=== PATIENT | female | born 1965 | race Caucasian/White ===

== ENCOUNTER 2020-07-03 07:59 | Outpatient (REF) | payer OTHER, SELFPAY ==
[2020-07-03 09:09] LABS: MANUAL DIFF FLAG NO
[2020-07-03 09:20] LABS: Basophils Percent Auto 0.3 % (0-2); Eosinophils Absolute Auto 0.2 X10*3/uL (0.0-0.4); Eosinophils Percent Auto 3.5 % (0-4); Hematocrit 40.3 % (37-47); Hemoglobin 12.9 g/dl (12.0-16.0); Imm Gran Abs Auto 0.03 X10*3/uL (0.00-0.03); Imm Gran Pct Auto 0.5 % (0.0-0.4); Lymphocytes Absolute Auto 2.4 X10*3/uL (1.2-4.9); Lymphocytes Percent Auto 39.7 % (20-40); Mean Corpuscular Hemoglobin 28.5 pg (27.0-33.0); Mean Corpuscular Volume 89.2 fL (80-98); Monocytes Absolute Auto 0.4 X10*3/uL (0.1-1.2); Monocytes Percent Auto 6.7 % (2-11); Neutrophils Absolute Auto 2.9 X10*3/uL (2.0-8.3); Neutrophils Percent Auto 49.3 % (45-73); Platelet Count 334 X10*3/uL (160-400); Red Blood Count 4.52 X10*6/uL (4.20-5.50); Red Cell Distribution Width 12.9 % (11.0-16.0)
[2020-07-03 10:05] LABS: Alanine Aminotransferase 47 U/L (0-31); Albumin Level 4.3 g/dL (3.5-5.0); Alkaline Phosphatase 59 U/L (39-117); Anion Gap 12 (12-20); Aspartate Amino Transferase 30 U/L (5-31); Bilirubin Total 0.5 mg/dL (0.0-1.0); Blood Urea Nitrogen 13 mg/dL (9-16); Calcium 9.1 mg/dL (8.4-10.2); Carbon Dioxide 30 mmol/L (22-29); Chloride 104 mmol/L (96-108); Cholesterol 230 mg/dL; Estimated Glomerular Filt Rate > 60; Glucose Fasting 96 mg/dL (60-99); HDL Cholesterol 54 mg/dL; LDL Cholesterol Calculated 127 mg/dl; Potassium 4.7 mmol/l (3.3-5.1); Sodium 141 mmol/L (135-145); Total Protein 6.8 g/dL (6.5-8.0); Triglycerides 249 mg/dL
== END 2020-07-03 08:00 | disposition home or self-care (01) ==
LOC: HO.10HDL 07:59
PROVIDERS: PCP Internal Medicine; Visit Provider Internal Medicine
DX: Z00.00 Encounter for general adult medical examination without abnormal findings (principal)
CPT/HCPCS: 36415; 80053; 80061; 85025

== ENCOUNTER → 2020-09-25 14:22 | Outpatient (BNVA) | payer OTHER, SELFPAY | PROVIDERS: PCP Internal Medicine; Visit Provider Surgery ==

== ENCOUNTER 2020-10-12 12:03 | Outpatient (REF) | payer OTHER, SELFPAY ==
[2020-10-12 13:08] LABS: Influenza A PCR NEGATIVE (Negative); Influenza B PCR NEGATIVE (Negative); Resp Syncy Virus RNA Qual PCR NEGATIVE (Negative); SARS COV2 PCR INHOUSE NEGATIVE (Negative)
== END 2020-10-12 12:04 | disposition home or self-care (01) ==
LOC: HO.LNP 12:03
PROVIDERS: Visit Provider Internal Medicine
DX: Z20.822 Contact with and (suspected) exposure to COVID-19 (principal)
CPT/HCPCS: 0241U

== ENCOUNTER 2021-01-11 13:13 | Outpatient (REF) | payer OTHER, SELFPAY ==
--- NOTE | ~2021-01-11 | MM_ITS ---
EXAMINATION: MM DIAGNOSTIC DIGITAL BREAST TOMOSYNTHESIS, BILATERAL US TARGETED BREAST, LEFT CLINICAL INFORMATION: History of breast cancer with 2 aunts with breast cancer. COMPARISON: Mammography: 01/10/2020 and studies dating back to 12/31/2010 Ultrasound: 02/27/2020 TECHNIQUE: Digital breast tomosynthesis is performed in both the craniocaudal and mediolateral oblique views along with computer-aided detection (CAD). Synthesized 2-D images are generated from the tomosynthesis. Spot magnification views in craniocaudal and 90 degree mediolateral views performed of the left breast. Left breast exaggerated craniocaudal view performed. Targeted left breast ultrasound FINDINGS: There are scattered areas of fibroglandular density (ACR BI-RADS breast composition Category b). There is stable appearance of the right breast with no new abnormal dominant mass or suspicious grouping of microcalcifications identified. There is noted to be architectural distortion related to previous lumpectomy about the upper outer aspect of the left breast. There are a few stable associated calcifications. No new abnormal dominant mass or suspicious grouping of microcalcifications identified. Targeted ultrasound evaluation did not demonstrate any abnormal cystic or solid mass. There is a region of irregular hypoechoic tissue with distal sound shadowing but which is related to the linear scar from previous surgery at the 4 o'clock position approximately 15 cm from the nipple. Results are discussed with the patient at time of visit. MM/MM tomosynthesis diagnostic BI IMPRESSION: There are no significant changes from prior study. ASSESSMENT: BI-RADS 2: Benign. RECOMMENDATION: Routine annual mammography screening due in 12 months. This patient's information was entered into a reminder system with a target due date for their next mammogram.
--- NOTE | ~2021-01-11 | US_ITS ---
EXAMINATION: US DIAGNOSTIC ULTRASOUND BREAST, LEFT CLINICAL INFORMATION: Left breast tenderness at lumpectomy site. COMPARISON: Ultrasound of February 27, 2020.. TECHNIQUE: Ultrasound of the breast is performed with real-time mclean scale imaging and color Doppler. FINDINGS: Targeted ultrasound evaluation did not demonstrate any abnormal cystic or solid mass. There is a region of irregular hypoechoic tissue with distal sound shadowing but which is related to the linear scar from previous surgery at the 4:00 position approximately 15 cm from the nipple. Results are discussed with the patient at time of visit. US/US breast LT limited IMPRESSION: There are no significant changes from prior study. ASSESSMENT: BI-RADS 2: Benign RECOMMENDATION: Routine annual mammography screening due in 12 months.
== END 2021-01-11 13:14 | disposition home or self-care (01) ==
LOC: HO.MAMMO 13:13
PROVIDERS: PCP Internal Medicine; Visit Provider Surgery
DX: D05.12 Intraductal carcinoma in situ of left breast (principal)
CPT/HCPCS: 76642; 77062; 77066

== ENCOUNTER → 2021-03-19 12:56 | Outpatient (BNVA) | payer OTHER, SELFPAY | PROVIDERS: PCP Internal Medicine; Referring Provider Internal Medicine; Visit Provider Surgery ==

== ENCOUNTER → 2021-09-19 14:33 | Outpatient (BNVA) | payer OTHER, SELFPAY | PROVIDERS: PCP Internal Medicine; Referring Provider Internal Medicine; Visit Provider Surgery | DX: D05.12 Intraductal carcinoma in situ of left breast (principal); Z79.899 Other long term (current) drug therapy | CPT/HCPCS: 99212 ==

== ENCOUNTER 2021-11-04 07:42 | Outpatient (REF) | payer OTHER, SELFPAY ==
[2021-11-04 08:06] LABS: MANUAL DIFF FLAG NO
[2021-11-04 08:40] LABS: Basophils Percent Auto 0.3 % (0-2); Eosinophils Absolute Auto 0.3 X10*3/uL (0.0-0.4); Eosinophils Percent Auto 5.1 % (0-4); Hematocrit 36.9 % (37.0-47.0); Hemoglobin 11.8 g/dl (12.0-16.0); Imm Gran Abs Auto 0.02 X10*3/uL (0.00-0.03); Imm Gran Pct Auto 0.3 % (0.0-0.4); Lymphocytes Absolute Auto 2.5 X10*3/uL (1.2-4.9); Lymphocytes Percent Auto 40.3 % (20-40); Mean Corpuscular Hemoglobin 28.4 pg (27.0-33.0); Mean Corpuscular Volume 88.7 fL (80.0-98.0); Monocytes Absolute Auto 0.5 X10*3/uL (0.1-1.2); Monocytes Percent Auto 8.6 % (2-11); Neutrophils Absolute Auto 2.8 x10*3/uL (2.0-8.3); Neutrophils Percent Auto 45.4 % (45-73); Platelet Count 313 X10*3/uL (160-400); Red Blood Count 4.16 X10*6/uL (4.20-5.50); Red Cell Distribution Width 13.1 % (11.0-16.0); White Blood Count 6.1 X10*3/uL (4.8-10.8)
[2021-11-04 09:07] LABS: Alanine Aminotransferase 44 U/L (0-31); Albumin Level 4.1 g/dL (3.5-5.0); Alkaline Phosphatase 54 U/L (39-117); Anion Gap 11 (12-20); Aspartate Amino Transferase 31 U/L (5-31); Bilirubin Total 0.7 mg/dL (0.0-1.0); Blood Urea Nitrogen 17 mg/dL (9-16); Calcium 9.6 mg/dL (8.4-10.2); Carbon Dioxide 29 mmol/L (22-29); Chloride 106 mmol/L (96-108); Cholesterol 213 mg/dL; Estimated Glomerular Filt Rate > 60; Glucose Fasting 102 mg/dL (60-99); HDL Cholesterol 48 mg/dL; LDL Cholesterol Calculated 121 mg/dl; Potassium 4.4 mmol/L (3.3-5.1); Sodium 142 mmol/L (135-145); Total Protein 6.5 g/dL (6.5-8.0); Triglycerides 221 mg/dL
[2021-11-04 09:30] LABS: Free T4 (Free Thyroxine) 0.93 ng/dL (0.71-1.85); Thyroid Stimulating Hormone 1.21 uIU/mL (0.32-4.0); Vitamin D 25-OH Total 54.2 ng/mL (>30)
[2021-11-04 11:10] LABS: Vitamin B12 394 pg/mL (200-900)
== END 2021-11-04 07:43 | disposition home or self-care (01) ==
LOC: HO.LAB 07:42
PROVIDERS: PCP Internal Medicine; Visit Provider Internal Medicine
DX: Z00.00 Encounter for general adult medical examination without abnormal findings (principal); R53.83 Other fatigue
CPT/HCPCS: 36415; 80053; 80061; 82306; 82607; 84439; 84443; 85025

== ENCOUNTER → 2022-01-13 21:22 | Outpatient (REF) | payer OTHER, SELFPAY | LOC: HO.SL 21:22 | PROVIDERS: Visit Provider Internal Medicine | DX: G47.33 Obstructive sleep apnea (adult) (pediatric) (principal); R06.83 Snoring; G47.9 Sleep disorder, unspecified; D05.12 Intraductal carcinoma in situ of left breast; Z79.810 Long term (current) use of selective estrogen receptor modulators (SERMs) | CPT/HCPCS: 95806 ==

== ENCOUNTER 2022-01-29 08:11 | Outpatient (REF) | payer OTHER, SELFPAY ==
--- NOTE | ~2022-01-29 | MM_ITS ---
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 COMPARISON: Mammography: 01/11/2021 and studies dating back to 03/02/2014. TECHNIQUE: Digital breast tomosynthesis is performed in both the craniocaudal and mediolateral oblique views along with computer-aided detection (CAD). Synthesized 2-D images are generated from the tomosynthesis. Additional left breast exaggerated craniocaudal view and spot magnification views in craniocaudal and 90-degree mediolateral views performed. FINDINGS: There are scattered areas of fibroglandular density (ACR BI-RADS breast composition Category b). There is a stable parenchymal pattern of the right breast with no new abnormal dominant mass or suspicious grouping of microcalcifications identified. There are postsurgical changes within the upper outer aspect of the left breast from previous lumpectomy. There are some stable calcifications near the surgical bed. Results are provided to the patient at time of visit by the technologist. MM/MM tomosynthesis diagnostic BI IMPRESSION: There are no significant changes from prior study. ASSESSMENT: BI-RADS 2: Benign. RECOMMENDATION: Routine annual mammography screening. This patient's information was entered into a reminder system with a target due date for their next mammogram.
== END 2022-01-29 08:12 | disposition home or self-care (01) ==
LOC: HO.MAMMO 08:11
PROVIDERS: Visit Provider Internal Medicine
DX: D05.12 Intraductal carcinoma in situ of left breast (principal)
CPT/HCPCS: 77062; 77066

== ENCOUNTER → 2022-09-25 14:01 | Outpatient (BNVA) | payer OTHER, SELFPAY | PROVIDERS: PCP Internal Medicine; Visit Provider Surgery | DX: Z13.89 Encounter for screening for other disorder (principal) ==

== ENCOUNTER 2023-01-08 07:39 | Outpatient (REF) | payer OTHER, SELFPAY ==
[2023-01-08 11:04] LABS: Alanine Aminotransferase 88 U/L (0-31); Alkaline Phosphatase 57 U/L (39-117); Anion Gap 12 (12-20); Aspartate Amino Transferase 76 U/L (5-31); Bilirubin Total 0.5 mg/dL (0.0-1.0); Blood Urea Nitrogen 15 mg/dL (9-16); Calcium 9.3 mg/dL (8.4-10.2); Carbon Dioxide 25 mmol/L (22-29); Chloride 108 mmol/L (96-108); Cholesterol 215 mg/dL; Estimated Glomerular Filt Rate > 60; Glucose Fasting 104 mg/dL (60-99); HDL Cholesterol 56 mg/dL; LDL Cholesterol Calculated 125 mg/dl; Potassium 4.2 mmol/L (3.3-5.1); Sodium 141 mmol/L (135-145); Total Protein 6.6 g/dL (6.5-8.0); Triglycerides 172 mg/dL
[2023-01-08 11:20] LABS: Free T4 (Free Thyroxine) 0.91 ng/dL (0.71-1.85); Thyroid Stimulating Hormone 1.48 uIU/mL (0.32-4.0); Vitamin D 25-OH Total 66.2 ng/mL (>30)
== END 2023-01-08 07:40 | disposition home or self-care (01) ==
LOC: HO.10HDL 07:39
PROVIDERS: Visit Provider Internal Medicine
DX: Z00.00 Encounter for general adult medical examination without abnormal findings (principal); E78.00 Pure hypercholesterolemia, unspecified
CPT/HCPCS: 36415; 80053; 80061; 82306; 82607; 84439; 84443; 85025

== ENCOUNTER 2023-02-02 09:15 | Outpatient (REF) | payer OTHER, SELFPAY ==
--- NOTE | ~2023-02-02 | US_ITS ---
EXAMINATION: US ABDOMEN COMPLETE CLINICAL INFORMATION: Abnormal LFTs. COMPARISON: None available. TECHNIQUE: Real-time imaging of the abdominal viscera. FINDINGS: PANCREAS: The tail is obscured by overlying gas. ABDOMINAL AORTA: The proximal, mid, and distal segments are normal in caliber. INFERIOR VENA CAVA: Visualized portions are normal. LIVER: The liver is normal in size. There is increased liver echogenicity with coarse echotexture. No focal hepatic lesion. There is no intrahepatic biliary duct dilatation seen. GALLBLADDER: Normal. The gallbladder is physiologically distended without evidence of stones, sludge, polyps, wall thickening or pericholecystic fluid. COMMON BILE DUCT: Normal in caliber measuring 0.5 cm in diameter. RIGHT KIDNEY: Normal. No hydronephrosis. No renal calculi or focal parenchymal lesions. The kidney measures 11.0 cm in maximum dimension. LEFT KIDNEY: Normal. No hydronephrosis. No renal calculi or focal parenchymal lesions. The kidney measures 11.5 cm in maximum dimension. SPLEEN: Normal. The spleen measures 10.9 cm in maximum dimension. FREE FLUID: None. US/US abdomen complete IMPRESSION: 1. Coarse echogenic liver without focal lesion. 2. Rest of the abdominal ultrasound is unremarkable.
== END 2023-02-02 09:16 | disposition home or self-care (01) ==
LOC: HO.US 09:15
PROVIDERS: PCP Internal Medicine; Visit Provider Internal Medicine
DX: R94.5 Abnormal results of liver function studies (principal)
CPT/HCPCS: 76700

== ENCOUNTER 2023-02-11 13:56 | Outpatient (REF) | payer OTHER, SELFPAY ==
--- NOTE | ~2023-02-11 | MM_ITS ---
EXAMINATION: BONE DENSITOMETRY CLINICAL INDICATION: Asymptomatic menopausal state. COMPARISON: Baseline BD dated 08/31/2018. TECHNIQUE: Using a [employer] DXA System (software version: 13.1) manufactured by [employer], dual-energy x-ray absorptiometry was performed of the lumbar spine and left hip. The images are of good technical quality. Summary results are attached. FINDINGS: LEFT FEMUR, NECK: Current: BMD 0.849 g/cm2, Z-score -0.5, T-score -1.4, osteopenia. Baseline: BMD 0.860 g/cm2. LEFT FEMUR, TOTAL: Current: BMD 0.871 g/cm2, Z-score -0.6, T-score -1.1, osteopenia, 4.3% decrease from baseline (<5% change is not significant). Baseline: BMD 0.910 g/cm2. AP SPINE L1-L4: Current: BMD 1.098 g/cm2, Z-score -0.1, T-score -0.7, normal, 0.9% decrease from baseline (<5% change is not significant). Baseline: BMD 1.108 g/cm2. IDENTIFIED RISK FACTORS: Menopause. HISTORY OF FRACTURE: None listed. MEDICATIONS: Calcium supplements or multivitamin, vitamin D, ERT/SERMS. MM/XR DEXA axial skeleton IMPRESSION: 1. DIAGNOSIS: Osteopenia based on the lowest T-score value of -1.4 in the femoral neck applying World Health Organization criteria. 2. 10-YEAR FRACTURE RISK PREDICTION, FRAX: Not performed in this patient on estrogen or bone building treatments. 3. Treatment Recommendations: NOF guidelines recommend consideration for treatment in postmenopausal women and men age 50 and older presenting with the following: -A hip or vertebral (clinical or morphometric) fracture. -T-score less than or equal to -2.5 at the femoral neck or spine after appropriate evaluation to exclude secondary causes. -Low bone mass at the hip or spine and a 10-year fracture probability by FRAX of greater than or equal to 3% for hip fracture or greater than or equal to 20% for major osteoporotic fracture based on the [place] adapted WHO algorithm. 4. Other Recommendations: All treatment decisions require clinical judgment and consideration of individual patient factors, including patient preferences, comorbidities, previous drug use, risk factors not captured in the FRAX model (e.g. frailty, falls, vitamin D deficiency, increased bone turnover, interval significant decline in bone density) and possible under or overestimation of fracture risk by FRAX. Additional medical evaluation for secondary cause of low bone mineral density may be appropriate. FUTURE SCAN RECOMMENDATION: People with diagnosed cases of osteoporosis or at high risk for fracture should have regular bone mineral density tests. For patients eligible for Medicare, routine testing is allowed once every 2 years. The testing frequency can be increased to one year for patients who have rapidly progressing disease, those who are receiving or discontinuing medical therapy to restore bone mass, or have additional risk factors.
== END 2023-02-11 13:57 | disposition home or self-care (01) ==
LOC: HO.MAMMO 13:56
PROVIDERS: PCP Internal Medicine; Visit Provider Internal Medicine
DX: Z13.820 Encounter for screening for osteoporosis (principal); D05.12 Intraductal carcinoma in situ of left breast; Z78.0 Asymptomatic menopausal state
CPT/HCPCS: 77080

== ENCOUNTER → 2023-02-11 14:00 | Outpatient (BNV) | payer OTHER, SELFPAY | PROVIDERS: PCP Internal Medicine; Visit Provider Radiology Diagnostic Radiology | DX: Z78.0 Asymptomatic menopausal state (principal) | CPT/HCPCS: 77080 ==

== ENCOUNTER 2023-02-16 14:18 | Outpatient (REF) | payer OTHER, SELFPAY ==
--- NOTE | ~2023-02-16 | MM_ITS ---
EXAMINATION: MM SCREENING DIGITAL BREAST TOMOSYNTHESIS, BILATERAL CLINICAL INFORMATION: Screening. Asymptomatic. The patient is status post left lumpectomy for intraductal carcinoma in situ. COMPARISON: Mammography: This study is compared with prior exams dating back to 2019. TECHNIQUE: Digital breast tomosynthesis is performed in both the craniocaudal and mediolateral oblique views along with computer-aided detection (CAD). Synthesized 2D images are generated from the tomosynthesis. FINDINGS: There are scattered areas of fibroglandular density (ACR BI-RADS breast composition Category b). There are minor architectural changes in the upper outer quadrant of the left breast from prior surgery for breast cancer. There are benign calcifications at the anteroinferior aspect of the surgical bed. In the deep third of the upper outer quadrant of the left breast, at the posterior aspect of the resection bed, there are grouped calcifications which warrant further evaluation with magnification mammography. Magnification imaging in the MLO and lateral projections is advised due to the depth of the finding. A full, laterally exaggerated craniocaudal view of the left breast should also be performed in attempt to locate the calcifications for CC magnification imaging. In the right breast, there are no significant masses, abnormal calcifications, or other abnormalities. MM/MM tomosynthesis screening BI IMPRESSION: Calcifications in the deep third of the upper outer quadrant of the left breast warrants additional mammographic imaging is described above. Postlumpectomy changes left breast. No mammographic signs of malignancy right breast. ASSESSMENT: BI-RADS BI-RADS 0 - Incomplete: Needs additional Imaging. RECOMMENDATION: Additional views of the left breast Radiology department staff will contact the patient for additional imaging. Additional Imaging required This examination should not preclude the clinical evaluation of a suspicious palpable abnormality. This patient's information was entered into a reminder system with a target due date for their next mammogram.
== END 2023-02-16 14:19 | disposition home or self-care (01) ==
LOC: HO.MAMMO 14:18
PROVIDERS: PCP Internal Medicine; Visit Provider Surgery
DX: Z12.31 Encounter for screening mammogram for malignant neoplasm of breast (principal)
CPT/HCPCS: 77063; 77067

== ENCOUNTER → 2023-02-16 14:30 | Outpatient (BNV) | payer OTHER, SELFPAY | PROVIDERS: PCP Internal Medicine; Visit Provider Radiology Diagnostic Radiology | DX: Z12.31 Encounter for screening mammogram for malignant neoplasm of breast (principal) | CPT/HCPCS: 77063; 77067 ==

== ENCOUNTER 2023-02-23 11:59 | Outpatient (AMB) | payer OTHER, SELFPAY ==
--- NOTE | 2023-02-23 12:05 | A.OFFVIS_ITS ---
Intake Vital Signs 02/23/23 12:06 Height 5 ft 3 in Weight 174 lb BMI 30.8 BP 124/72 Intake Visit Reasons: New patient Annual Intake Note: no concerns Veneer Clipper Required: No Information Interpreted: non-clinical & clinical Turner Machine: Turner Machine Present Allergies codeine [CODEINE] Allergy (Intermediate, Verified 02/23/23 12:09) HALLUCINATIONS Codeine Phosphate Allergy (Unknown, Uncoded 02/23/23 12:09) rash Post menopausal: Yes HPI HPI Comments History of Present Illness Details Presenting for annual exam. No complaints. Last Pap/HPV was negative in 11/21 Last Mammogram was done in 02/16/2023, report is not available yet Last Colonoscopy was done in 08/23, the recommendation was to repeat in 5 years [facility] Medical History Sleep apnea Surgical History H/O colonoscopy (2016) Status post left breast lumpectomy (08/11/18) Family History Mother Breast cancer Sister Breast cancer Maternal Aunt Breast cancer Maternal Grandmother Breast cancer Social History Household Members Other:: Fiance Housing: House Alcohol intake: current Alcohol intake frequency: holidays/special occasions only Patient Tobacco Use Status: Never used Tobacco Current occupational status: employed Current occupation: Accounting Sexual orientation: Straight/Heterosexual Gender identity: Female Female Reproductive History Menstrual Total pregnancies: 2 Full term: 2 Number of Living Children: 2 Date of last pap smear: 12/01/18 Date of Mammogram: 02/16/23 Date of last Bone Density Screenin02/11/23 Review of Systems Const All systems reviewed & are unremarkable except as noted in HPI and below Card Reports as per HPI Resp Reports as per HPI GI Reports as per HPI and Reports no additional complaints Reports as per HPI Physical Exam Const General: cooperative, healthy appearing and comfortable Chest Chest palpation & inspection: normal inspection of the chest and normal palpation of entire chest wall Breast/axilla inspection: normal inspection of the breasts and normal inspection of the axillae Breast/axilla palpation: normal palpation of the breasts, normal palpation of the axillae and no axillary lymphadenopathy Resp Effort & Inspection: normal respiratory effort Auscultation: clear to auscultation bilaterally Percussion: percussion normal Cardio Palpation: normal PMI Rate: regular rate Rhythm: regular rhythm Heart sounds: no murmurs and no rubs Peripheral pulses: Peripheral pulses 2+ throughout GI Inspection: Yes normal to inspection Palpation (GI): Soft to palpation, nontender, no guarding, not rigid and No hepatosplenomegaly present Percussion: Yes normal to percussion Auscultation: normal bowel sounds Rectal Exam - Female: deferred General: Yes bladder normal to palpation External Female Exam: No lesion Speculum Exam - Vagina: normal appearance of the vagina, normal palpation, normal vaginal discharge and not erythematous Speculum Exam - Cervix: normal appearance of the cervix and normal palpation Bimanual exam- vagina & uterus: normal bimanual exam, normal palpation, uterine size normal, bladder normal to palpation, consistency normal and normal palpation Bimanual Exam- Adnexa, other: normal adnexae, no masses and no tenderness Assessment & Plan Assessment & Plan (1) Well woman exam: Code(s): Z01.419 - Encounter for gynecological examination (general) (routine) without abnormal findings Plan: Co testing not indicated this year. Counseled the patient about the recommended dietary allowance of 1200 mg of Calcium & 600 IU of vitamin D. Mammogram just done, report not available , the patient was referred to GI for screening colonoscopy . The patient was instructed to perform monthly self-breast exams and schedule annual exam in a year; all questions answered and the patient verbalized understanding. Orders: Referrals Gastroenterology Referral Z12.11 - Encounter for screening for malignant neoplasm of colon Coding Level of Care Code Est Pt Prev Care 40-64y(15941) Diagnoses Well woman exam Z01.419
[2023-02-23 12:06] VITALS: BP 124/72; BMI 30.8
== END 2023-02-23 12:28 | disposition home or self-care (01) ==
LOC: HO.HWS 11:59
PROVIDERS: PCP Internal Medicine; Visit Provider Obstetrics & Gynecology
DX: Z01.419 Encounter for gynecological examination (general) (routine) without abnormal findings (principal)
CPT/HCPCS: 99396

== ENCOUNTER → 2023-02-23 11:59 | Outpatient (BNVA) | payer OTHER, SELFPAY | PROVIDERS: PCP Internal Medicine; Visit Provider Obstetrics & Gynecology ==

== ENCOUNTER 2023-03-04 08:57 | Outpatient (REF) | payer OTHER, SELFPAY ==
--- NOTE | ~2023-03-04 | MM_ITS ---
EXAMINATION: MM DIAGNOSTIC DIGITAL BREAST TOMOSYNTHESIS, LEFT CLINICAL INFORMATION: Follow-up left breast calcifications far posterior upper outer quadrant seen on screening exam 02/16/2023. History of left breast lumpectomy for DCIS. Calcifications are along the posterior aspect of the lumpectomy scar. COMPARISON: Mammography: 02/16/2023, 01/29/2022, 01/11/2021, and dating back to 2019. TECHNIQUE: Digital breast tomosynthesis is performed. 2D images are generated from the tomosynthesis. The following views are obtained: 3-D full-field digital X CCL view, as well as 2-D spot magnification left X CCL and ML views. FINDINGS: There are scattered areas of fibroglandular density (ACR BI-RADS breast composition Category b). Additional views demonstrate increasing calcifications in the far posterior aspect of the upper outer left breast along the posterior scar margin. These have somewhat coarse appearance and are located within fatty lobules on the tomographic images, suggesting fat necrosis as opposed to recurrence. Also, the far posterior extent of these calcifications likely would make stereotactic sampling extremely difficult, if not unfeasible. These are best seen in the left exaggerated CC magnification view Favor dystrophic calcifications secondary to fat necrosis and 6 month interval follow-up recommended. MM/MM tomosynthesis added views L IMPRESSION: Probably benign calcifications upper outer left breast, far posterior one third, likely related to fat necrosis/dystrophic calcifications along the scar margin. See above for discussion. 6 month interval follow-up left breast mammography including magnification views in the X CCL, and ML views recommended. Findings and recommendations were discussed with the patient. ASSESSMENT: BI-RADS BI-RADS 3 - Probably benign finding(s) - 6 month follow-up suggested RECOMMENDATION: 6 Month F/U Results were provided to the patient at time of visit by the technologist. This patient's information was entered into a reminder system with a target due date for their next mammogram.
== END 2023-03-04 08:58 | disposition home or self-care (01) ==
LOC: HO.MAMMO 08:57
PROVIDERS: Absent Provider Surgery; PCP Internal Medicine; Visit Provider Internal Medicine
DX: R92.1 Mammographic calcification found on diagnostic imaging of breast (principal)
CPT/HCPCS: 77061; 77065

== ENCOUNTER → 2023-03-04 09:00 | Outpatient (BNV) | payer OTHER, SELFPAY | PROVIDERS: Absent Provider Surgery; PCP Internal Medicine; Visit Provider Radiology Diagnostic Radiology | DX: Z12.31 Encounter for screening mammogram for malignant neoplasm of breast (principal) | CPT/HCPCS: 77061; 77065 ==

== ENCOUNTER 2023-04-02 13:49 | Outpatient (AMB) | payer OTHER, SELFPAY ==
--- NOTE | 2023-04-02 13:56 | MHC.OFFVIS ---
Intake Vital Signs 04/02/23 14:00 Height 5 ft 3 in Weight 174 lb 6 oz BMI 30.9 BP 160/75 H Blood Pressure Location Lt brachial Position Sitting Pulse 103 H Intake Visit Reasons: 6 mth follow up breast exam Intake Note: Patient is seen in office for 6 month follow up visit, breast exam. Patient c/o: denies any concerns at the time of visit Precision Honing Machine Operator Required: No Accompanied by: Self / Same As Patient Allergies codeine [CODEINE] Allergy (Intermediate, Verified 04/02/23 14:03) HALLUCINATIONS Codeine Phosphate Allergy (Unknown, Uncoded 04/02/23 14:03) rash Medication List - Last Reconciled 04/02/23 by Matias Noland MD albuterol sulfate 90 mcg/actuation 2 puffs inhalation Q4H PRN tamoxifen 20 mg PO DAILY HPI HPI Comments History of Present Illness Details 57-year-old female returning for follow-up breast examination diagnosed in July 2018 with ductal carcinoma in situ. Mammogram dated 07/14/2018 and 07/30/2018 revealed microcalcifications in the 3:30 o'clock location left breast felt to be suspicious for malignancy. 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 She underwent a left breast lumpectomy with needle localization on 08/11/2018. Pathology confirmed a 1 x 1 by 0.9 cm ductal carcinoma in situ, nuclear grade 3, with focal necrosis, ER/MD positive, with the closest margin being the medial margin of 2.5 mm. She underwent radiation therapy followed by tamoxifen which she is tolerating well. She denies any new symptoms. Genetic testing revealed no known clinically significant genetic mutations and 1 mutation of unknown significance in the POLD 1 gene. Mammogram on 02/16/2023 with follow-up images of the left breast on 03/04/2023 revealed calcifications in the deep 1/3 of the upper-outer quadrant left breast seen at the scar margin consistent with fat necrosis. These regarded as low suspicion for malignancy and follow-up in 6 months with a diagnostic mammogram is recommended (BI-RADS 3). [facility] Medical History Sleep apnea Surgical History Status post left breast lumpectomy (08/11/18) H/O colonoscopy (2017) Family History Mother Breast cancer Sister Breast cancer Maternal Aunt Breast cancer Maternal Grandmother Breast cancer Social History Household Members Other:: Fiance Housing: House Alcohol intake: current Alcohol intake frequency: holidays/special occasions only Patient Tobacco Use Status: Never used Tobacco Current occupational status: employed Current occupation: Accounting Sexual orientation: Straight/Heterosexual Gender identity: Female Review of Systems Const All systems reviewed & are unremarkable except as noted in HPI and below Physical Exam Vital Signs: Last Vital Signs Pulse 103 H 04/02/23 14:00 BP 160/75 H 04/02/23 14:00 BMI result Body Mass Index 30.9 Const General: healthy appearing and well developed Nutritional Appearance: well nourished Orientation/consciousness: patient oriented x3 Limitations: no limitations HEENT Head: Yes normocephalic and Yes atraumatic Neck Neck: Yes normal visual inspection, Yes no lymphadenopathy and Yes no JVD Lymphatic: no lymphadenopathy noted Chest Other: Left breast: No skin change, no nipple retraction, no nipple discharge, no new palpable mass, area of firmness in the lower outer quadrant as noted below, postoperative change, no enlarged lymph nodes. Right breast: No skin change, no nipple retraction, no nipple discharge, no palpable mass, no enlarged lymph nodes Chest/axillae images: 1. Incision lower outer quadrant Resp Effort & Inspection: normal respiratory effort and no audible wheezes Skin General skin exam: no rashes or lesions noted Neuro General: patient oriented x3 Extrem General: Yes no clubbing, cyanosis or edema Assessment & Plan Assessment & Plan (1) Ductal carcinoma in situ of left breast: Code(s): D05.12 - Intraductal carcinoma in situ of left breast Plan: 57-year-old female returning for a follow-up examination following left breast lumpectomy for ductal carcinoma in situ. She completed radiation therapy and is currently on tamoxifen. Her most recent mammogram from 02/16/2023 and 03/04/2023 revealed an area of calcification in upper outer quadrant the left breast consistent with the margins of scarring with probable fat necrosis. Short-term follow-up in 6 months was recommended with a diagnostic mammogram of the left breast. Examination today revealed no suspicious findings and only post treatment scar tissue in the lower outer quadrant. No enlarged lymph nodes are identified. I recommended she follow-up after the six-month follow-up mammogram to review the results. She is welcome to call sooner for any new concerns. (2) Calcification of left breast: Code(s): R92.1 - Mammographic calcification found on diagnostic imaging of breast Orders: Orders MM diagnostic mammo unilat LT 08/06/23 D05.12 - Intraductal carcinoma in situ of left breast, R92.1 - Mammographic calcification found on diagnostic imaging of breast Coding Level of Care Code Est Pt Level 3 (62838) Diagnoses Ductal carcinoma in situ of left breast D05.12 Calcification of left breast R92.1
[2023-04-02 14:00] VITALS: BP 160/75; PULSE 103; BMI 30.9
== END 2023-04-02 14:16 | disposition home or self-care (01) ==
PROVIDERS: PCP Internal Medicine; Visit Provider Surgery
DX: D05.12 Intraductal carcinoma in situ of left breast (principal); R92.1 Mammographic calcification found on diagnostic imaging of breast
CPT/HCPCS: 99213

== ENCOUNTER → 2023-04-02 13:49 | Outpatient (BNVA) | payer OTHER, SELFPAY | PROVIDERS: PCP Internal Medicine; Visit Provider Surgery ==

== ENCOUNTER → 2023-09-09 11:00 | Outpatient (BNV) | payer OTHER, SELFPAY | PROVIDERS: PCP Internal Medicine; Visit Provider Radiology Diagnostic Radiology | DX: R92.1 Mammographic calcification found on diagnostic imaging of breast (principal); Z86.000 Personal history of in-situ neoplasm of breast; Z98.890 Other specified postprocedural states; L90.5 Scar conditions and fibrosis of skin | CPT/HCPCS: 77065 ==

== ENCOUNTER 2023-09-09 11:03 | Outpatient (REF) | payer OTHER, SELFPAY ==
--- NOTE | ~2023-09-09 | MM_ITS ---
EXAMINATION: MM DIAGNOSTIC DIGITAL MAMMOGRAPHY, LEFT CLINICAL INFORMATION: Six-month follow-up left breast calcifications far posterior upper outer quadrant seen on screening exam 02/16/2023. History of left breast lumpectomy for DCIS. Calcifications again appear along the posterior aspect of the lumpectomy scar. COMPARISON: Mammography: 03/04/2023, 02/16/2023 (BI-RADS 0). 01/29/2022, 01/11/2021, 01/10/2020. TECHNIQUE: Digital mammography is performed in the following views: 3-D full-field digital left CC, left MLO, and left mediolateral views, as well as 2-D spot magnification left exaggerated lateral CC view, and mediolateral view. FINDINGS: There are scattered areas of fibroglandular density (ACR BI-RADS breast composition Category b). Additional views demonstrate no significant interval change in the calcifications within the far posterior aspect of the upper outer left breast along the posterior scar margin. These again have a somewhat coarse appearance and are located within fatty lobules on the tomographic images, suggesting fat necrosis. There are completely unchanged in both morphology and number. They are best seen in the left exaggerated CC magnification view. There are no new abnormal findings in the left breast. Results are provided to the patient at time of visit by the technologist. MM/MM diagnostic mammo unilat LT IMPRESSION: There are no findings in the left breast suspicious for malignancy. There are no significant changes in the probably dystrophic probably benign calcifications within the far posterior upper outer quadrant left breast along the scar margin. Additional six-month interval follow-up mammography recommended when the patient is due for bilateral screening. ASSESSMENT: BI-RADS BI-RADS 3 - Probably benign finding(s) - 6 month follow-up suggested RECOMMENDATION: 6 Month F/U This patient's information was entered into a reminder system with a target due date for their next mammogram.
== END 2023-09-09 11:04 | disposition home or self-care (01) ==
LOC: HO.MAMMO 11:03
PROVIDERS: PCP Internal Medicine; Visit Provider Internal Medicine
DX: R92.1 Mammographic calcification found on diagnostic imaging of breast (principal)
CPT/HCPCS: 77062; 77065

== ENCOUNTER 2023-09-17 13:48 | Outpatient (AMB) | payer OTHER, SELFPAY ==
--- NOTE | 2023-09-17 14:12 | A.OFFVIS_ITS ---
Intake Vital Signs 3 09/17/23 14:16 Height 5 ft 3 in Weight 170 lb BMI 30.1 BP 145/77 H Blood Pressure Location Lt brachial Position Sitting Pulse 91 Intake Visit Reasons: Follow Up breast exam after Mammo Intake Note: Patient is seen in office for 6 month follow up visit, breast exam. 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 Mammogram dated 07/14/2018 and 07/30/2018 revealed microcalcifications in the 3:30 o'clock location left breast felt to be suspicious for malignancy. 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 She underwent a left breast lumpectomy with needle localization on 08/11/2018. Pathology confirmed a 1 x 1 by 0.9 cm ductal carcinoma in situ, nuclear grade 3, with focal necrosis, ER/ME positive, with the closest margin being the medial margin of 2.5 mm. She underwent radiation therapy followed by tamoxifen which she is tolerating well. She denies any new symptoms. Genetic testing revealed no known clinically significant genetic mutations and 1 mutation of unknown significance in the POLD 1 gene. Mammogram on 02/16/2023 with follow-up images of the left breast on 03/04/2023 revealed calcifications in the deep 1/3 of the upper-outer quadrant left breast seen at the scar margin consistent with fat necrosis. These regarded as low suspicion for malignancy and follow-up in 6 months with a diagnostic mammogram is recommended (BI-RADS 3). Follow-up images of the left breast on 09/09/2023 revealed no significant changes the calcification. Six-month follow-up bilateral mammograms are recommended (BI-RADS 3). [facility] Medical History (Updated 09/17/23 @ 14:30 by Matias Noland MD) Sleep apnea Surgical History Status post left breast lumpectomy (08/11/18) H/O colonoscopy (2017) Family History Mother Breast cancer Sister Breast cancer Maternal Aunt Breast cancer Maternal Grandmother Breast cancer Social History Household Members Other:: Fiance Housing: House Alcohol intake: current Alcohol intake frequency: holidays/special occasions only Patient Tobacco Use Status: Never used Tobacco Current occupational status: employed Current occupation: Accounting Sexual orientation: Straight/Heterosexual Gender identity: Female Review of Systems Const All systems reviewed & are unremarkable except as noted in HPI and below Physical Exam Const General: healthy appearing and well developed Nutritional Appearance: well nourished Orientation/consciousness: patient oriented x3 Limitations: no limitations HEENT Head: Yes normocephalic and Yes atraumatic Neck Neck: Yes normal visual inspection, Yes no lymphadenopathy and Yes no JVD Lymphatic: no lymphadenopathy noted Chest Other: Left breast: No skin change, no nipple retraction, no nipple discharge, no new palpable mass, area of firmness in the lower outer quadrant as noted below, postoperative change, no enlarged lymph nodes. Right breast: No skin change, no nipple retraction, no nipple discharge, no palpable mass, no enlarged lymph nodes Chest/axillae images: 2 1. Resp Effort & Inspection: normal respiratory effort and no audible wheezes Skin General skin exam: no rashes or lesions noted Neuro General: patient oriented x3 Extrem General: Yes no clubbing, cyanosis or edema Assessment & Plan Assessment & Plan (1) Ductal carcinoma in situ of left breast: Code(s): D05.12 - Intraductal carcinoma in situ of left breast (2) Calcification of left breast: Code(s): R92.1 - Mammographic calcification found on diagnostic imaging of breast Plan 58-year-old female returning for a follow-up examination following left breast lumpectomy for ductal carcinoma in-situ. She completed radiation therapy and is currently on tamoxifen. The bilateral mammogram from 02/16/2023 and 03/04/2023 revealed an area of calcification in upper outer quadrant the left breast consistent with the margins of scarring with probable fat necrosis. Short-term follow-up in 6 months was recommended with a diagnostic mammogram of the left breast. Diagnostic mammogram performed on 09/09/2023 revealed no significant change from the prior left mammogram. This was felt to be low suspicion (BI- RADS 3) and six-month follow-up recommended at the time of her bilateral mammogram. Examination today revealed no suspicious findings and only post treatment scar tissue in the lower outer quadrant. No enlarged lymph nodes are identified. She will follow-up in 6 months following this next mammogram. Orders: Orders 2 MM diagnostic mammo BI 03/14/24 C50.912 - Malignant neoplasm of unspecified site of left female breast, D05.12 - Intraductal carcinoma in situ of left breast Coding Level of Care Code Est Pt Level 3 (57716) Diagnoses Ductal carcinoma in situ of left breast D05.12 Calcification of left breast R92.1
[2023-09-17 14:16] VITALS: BP 145/77; PULSE 91; BMI 30.1
== END 2023-09-17 14:36 | disposition home or self-care (01) ==
PROVIDERS: PCP Internal Medicine; Visit Provider Surgery
DX: D05.12 Intraductal carcinoma in situ of left breast (principal); R92.1 Mammographic calcification found on diagnostic imaging of breast
CPT/HCPCS: 99213

== ENCOUNTER → 2023-09-17 13:48 | Outpatient (BNVA) | payer OTHER, SELFPAY | PROVIDERS: PCP Internal Medicine; Visit Provider Surgery | DX: D05.12 Intraductal carcinoma in situ of left breast (principal); R92.1 Mammographic calcification found on diagnostic imaging of breast ==

== ENCOUNTER 2023-12-25 11:17 | Day surgery (SDC) | payer OTHER, SELFPAY ==
--- NOTE | 2023-12-23 12:24 | HO.ANESPROP2 ---
Documented by User: Teri Morris NP 12/23/23 12:24 HPI - Anesthesia Eval Consult details Narrative: 58yo F for Colonoscopy PMFSH Active Problems Active Problems: All Active Problems Calcification of left breast (Acute) Encounter for screening colonoscopy (Acute) Well woman exam (Acute) Ductal carcinoma in situ of left breast (Acute) Past Medical History Medical History Hx of radiation therapy HX: breast cancer Sleep apnea Family History Family History Mother Breast cancer Sister Breast cancer Maternal Aunt Breast cancer Maternal Grandmother Breast cancer Surgical History Surgical History History of dilatation and curettage Status post left breast lumpectomy (08/11/18) H/O colonoscopy (2016) Social History Social History Household Members Other:: Fiance Housing: House Alcohol intake: current Alcohol intake frequency: holidays/special occasions only Patient Tobacco Use Status: Never used Tobacco Use of substances other than those prescribed or required for medical reasons: No Are you DNR?: No Advance Directives: No Advance Directives Information Provided: Yes Patient : No (postmenopausal) Current occupational status: employed Current occupation: Accounting Sexual orientation: Straight/Heterosexual Gender identity: Female Meds Allergies Allergy/AdvReac Type Severity Reaction Status Date / Time codeine [CODEINE] Allergy Intermediate HALLUCINATI Verified 09/17/23 14:16 ONS Codeine Phosphate Allergy Unknown rash Uncoded 09/17/23 14:16 Home Medications ?Medication ?Instructions ?Recorded ?Confirmed ?Last Taken ?Type cholecalciferol (vitamin D3) 25 25 mcg PO DAILY 12/23/23 12/23/23 Unknown History mcg (1,000 unit) tablet (Vitamin D3) multivitamin 1 tab PO DAILY 12/23/23 12/23/23 Unknown History Assessment and Plan Assessment Anesthesia Assessment: Chart Reviewed Documented by User: Opal Lorenzo MD 12/25/23 13:40 PMFSH Past Medical History Medical History Hx of radiation therapy HX: breast cancer Sleep apnea Family History Family History Mother Breast cancer Sister Breast cancer Maternal Aunt Breast cancer Maternal Grandmother Breast cancer Surgical History Surgical History History of dilatation and curettage Status post left breast lumpectomy (08/11/18) H/O colonoscopy (2017) History of Problems with Anesthesia: No Social History Social History Household Members Other:: Fiance Housing: House Alcohol intake: current Alcohol intake frequency: holidays/special occasions only Patient Tobacco Use Status: Never used Tobacco Use of substances other than those prescribed or required for medical reasons: No Are you DNR?: No Advance Directives: No Advance Directives Information Provided: Yes Patient : No (postmenopausal) Current occupational status: employed Current occupation: Accounting Sexual orientation: Straight/Heterosexual Gender identity: Female Meds Allergies Allergy/AdvReac Type Severity Reaction Status Date / Time codeine [CODEINE] Allergy Intermediate HALLUCINATI Verified 09/17/23 14:16 ONS Codeine Phosphate Allergy Unknown rash Uncoded 09/17/23 14:16 Home Medications ?Medication ?Instructions ?Recorded ?Confirmed ?Last Taken ?Type cholecalciferol (vitamin D3) 25 25 mcg PO DAILY 12/23/23 12/23/23 Unknown History mcg (1,000 unit) tablet (Vitamin D3) multivitamin 1 tab PO DAILY 12/23/23 12/23/23 Unknown History Exam Airway Mallampati Class: III (receding chin) TM Dist: >3cm Neck ROM: Full Loose/Missing/Broken Teeth: No Heart: RRR Lungs: CTA Assessment and Plan Assessment Anesthesia Assessment: Anesthesia Plan Discussed Final Anesthetic Review History of Problems with Anesthesia: No NPO: Yes ASA Class: III Final Preanesthetic Review: Meds/Allgs Chart Reviewed, Consent Obtained/Reviewed and Anes Risks/Benef Reviewed Patient Risk: Intermediate Procedure Risk: Low Anesthetic Plan Anesthetic Plan: MAC: Disposition: Standard PACU
[2023-12-23 14:44] VITALS: BMI 30.1
[2023-12-25 12:22] VITALS: BMI 28.7
[2023-12-25 12:43] VITALS: BP 137/71; PULSE 66; RESP 16; TEMP 36.9; O2SAT 100
[2023-12-25] MEDS: Lactated Ringers 1,000 ML 100 ML IVCONT (12:56)
[2023-12-25 14:21] VITALS: BP 96/51; PULSE 84; RESP 16; TEMP 36.4; O2SAT 98
--- NOTE | 2023-12-25 14:24 | P.BOP_ITS ---
Brief Operative Note Date of Service: 12/25/23 Pre-op diagnosis: Screening Post-op diagnosis: other (Diverticulosis) Procedure: Colonoscopy to the cecum Surgeon: Ronal Mendes MD Anesthesia: MAC Was an Repairer Typewriter used for this Procedure?: No Estimated blood loss (mL): 0 Pathology: none sent Condition: stable Disposition: PACU
[2023-12-25 14:36] VITALS: BP 118/71; PULSE 77; RESP 13; TEMP 36.4; O2SAT 100
--- NOTE | 2023-12-25 15:35 | OP_ITS ---
DATE OF SERVICE: 12/25/2023 SURGEON: Ronal Mendes MD INDICATIONS: The patient presents for evaluation of family history of colon cancer, colorectal cancer screening. Full consent has been obtained from her for this, including risks of bleeding and perforation. PREOPERATIVE DIAGNOSIS: POSTOPERATIVE DIAGNOSIS: PROCEDURE PERFORMED: Colonoscopy to cecum. ESTIMATED BLOOD LOSS: COMPLICATIONS: ANESTHESIA: Monitored anesthesia care. ASSISTANTS: SPECIMENS: PREOPERATIVE DIAGNOSES: Colorectal cancer screening and family history of colon cancer. POSTOPERATIVE DIAGNOSES: Colorectal cancer screening, family history of colon cancer, mild diverticulosis, and internal hemorrhoids. DESCRIPTION OF PROCEDURE: The patient was placed in the left lateral decubitus position. The digital rectal exam revealed no abnormalities. The Olympus video pediatric colonoscope was then entered into the rectum and advanced easily to the cecum. Once in the cecum, I did identify normal-appearing cecal pouch with appendiceal orifice and a normal-appearing ileocecal valve. The entire cecum and ileocecal valve appeared normal. The scope was slowly withdrawn assessing all mucosal surfaces carefully. Preparation was excellent. I did not visualize any sign of polyps, colitis, nor angiodysplasias. There was a mild amount of sigmoid diverticulosis. In the rectum, scope was retroflexed, visualizing internal hemorrhoids, but no other pathology. The rectal mucosa appeared normal. The scope was straightened and withdrawn from the patient. She tolerated the procedure well and was returned to the recovery area in stable condition. IMPRESSION: 1. Mild diverticulosis. 2. Internal hemorrhoids. PLAN: Given her family history, I would recommend a followup colonoscopy in 5 years for further screening. She will, otherwise, see me on a p.r.n. basis. Ronal Mendes MD RMW/KAVON / [id number]
== END 2023-12-25 14:54 | disposition home or self-care (01) ==
PROVIDERS: PCP Internal Medicine; Visit Provider Internal Medicine
PROC: 0DJD8ZZ Inspection of Lower Intestinal Tract, Via Natural or Artificial Opening Endoscopic (ICD-10-PCS; CPT 45378; principal; 2023-12-25 13:40)
DX: Z12.11 Encounter for screening for malignant neoplasm of colon (principal); Z86.010 Personal history of colon polyps; Z80.0 Family history of malignant neoplasm of digestive organs; K57.30 Diverticulosis of large intestine without perforation or abscess without bleeding; K64.8 Other hemorrhoids; Z85.3 Personal history of malignant neoplasm of breast; Z92.3 Personal history of irradiation
CPT/HCPCS: 45378; J2704

== ENCOUNTER 2024-02-23 08:49 | Outpatient (REF) | payer OTHER, SELFPAY ==
[2024-02-23 10:32] LABS: MANUAL DIFF FLAG NO
[2024-02-23 10:35] LABS: Basophils Percent Auto 0.4 % (0-2); Eosinophils Absolute Auto 0.3 X10*3/uL (0.0-0.4); Eosinophils Percent Auto 4.1 % (0-4); Hematocrit 38.9 % (37.0-47.0); Hemoglobin 12.7 g/dl (12.0-16.0); Imm Gran Abs Auto 0.04 X10*3/uL (0.00-0.03); Imm Gran Pct Auto 0.5 % (0.0-0.4); Lymphocytes Absolute Auto 2.5 X10*3/uL (1.2-4.9); Lymphocytes Percent Auto 33.2 % (20-40); Mean Corpuscular HGB Conc 32.6 g/dl (31.0-35.0); Mean Corpuscular Hemoglobin 28.9 pg (27.0-33.0); Mean Corpuscular Volume 88.4 fL (80.0-98.0); Mean Platelet Volume 8.6 fL (9.4-12.3); Monocytes Absolute Auto 0.5 X10*3/uL (0.1-1.2); Monocytes Percent Auto 6.7 % (2-11); Neutrophils Absolute Auto 4.2 x10*3/uL (2.0-8.3); Neutrophils Percent Auto 55.1 % (45-73); Platelet Count 335 X10*3/uL (160-400); Red Cell Distribution Width 13.7 % (11.0-16.0); White Blood Count 7.6 X10*3/uL (4.8-10.8)
[2024-02-23 10:42] LABS: INTERNATIONAL NORM RATIO 0.9 (0.9-1.1); Prothrombin Time 10.9 SEC (11.1-13.3)
[2024-02-23 11:08] LABS: Alanine Aminotransferase 43 U/L (0-31); Albumin Level 4.3 g/dL (3.5-5.0); Alkaline Phosphatase 62 U/L (39-117); Aspartate Amino Transferase 38 U/L (5-31); Bilirubin Direct 0.1 mg/dL (0.0-0.5); Bilirubin Total 0.4 mg/dL (0.0-1.0); Iron 72 mcg/dL (30-160); Percent Iron Saturation 21 % (15-50); Total Iron Binding Capacity 344 mcg/dL (228-428); Unsaturated Iron Binding 272 ug/dL
[2024-02-23 11:27] LABS: Ferritin 277 ng/mL (10-250)
[2024-02-23 11:32] LABS: HBS Num1 0.36 mIU/mL (0-7.99); HBc Num1 0.08 S/CO (0.00-0.79); HBsAGNum1 0.35 S/CO (0.00-0.99); Hepatitis B Core Antibody Nonreactive (Nonreactive); Hepatitis B Surface Antigen Negative (Negative); ~HepC Num1 0.08 S/CO (0.00-0.79); ~Hepatitis B Surface Antibody NONREACTIVE (Nonreactive); ~Hepatitis C Antibody Nonreactive (Nonreactive)
[2024-02-26 12:03] LABS: Smooth Muscle Antibody <20 U (<20)
[2024-02-26 12:47] LABS: Mitochondrial Antibodies NEGATIVE (NEGATIVE)
[2024-02-26 15:29] LABS: Anti Nuclear Antibody Screen NEGATIVE (NEGATIVE)
[2024-03-02 01:24] LABS: FIB-ALT 37 U/L (6-29); FIB-Alpha-2-Macroglobulin 189 mg/dL (106-279); FIB-Apolipoprotein A1 200 mg/dL (101-198); FIB-GGT 24 U/L (3-70); FIB-Haptoglobin 161 mg/dL (43-212); FIB-Total Bilirubin 0.4 mg/dL (0.2-1.2); Liver Fibrosis Score 0.08; Liver Fibrosis Stage F0; Nec Inflam Act Grade A0; Nec Inflam Act Score 0.15
== END 2024-02-23 08:50 | disposition home or self-care (01) ==
LOC: HO.10HDL 08:49
PROVIDERS: Visit Provider Internal Medicine
DX: R94.5 Abnormal results of liver function studies (principal); K76.0 Fatty (change of) liver, not elsewhere classified
CPT/HCPCS: 36415; 80076; 81596; 82728; 83540; 85025; 85610; 86015; 86038; 86381; 86704; 86706; 86803; 87340

== ENCOUNTER → 2024-03-15 11:00 | Outpatient (BNV) | payer OTHER, SELFPAY | PROVIDERS: PCP Internal Medicine; Visit Provider Radiology Diagnostic Radiology | DX: R92.1 Mammographic calcification found on diagnostic imaging of breast (principal) | CPT/HCPCS: 77062; 77066 ==

== ENCOUNTER 2024-03-15 11:03 | Outpatient (REF) | payer OTHER, SELFPAY ==
--- NOTE | ~2024-03-15 | MM_ITS ---
EXAMINATION: MM DIAGNOSTIC DIGITAL BREAST TOMOSYNTHESIS, BILATERAL CLINICAL INFORMATION: Six-month follow-up for probably benign suspected dystrophic calcifications left breast lumpectomy scar 3:00 axis left breast posterior one third. Calcifications again appear along the posterior aspect of the lumpectomy scar. Patient due for yearly as well. History of left breast lumpectomy for DCIS. COMPARISON: Mammography: 09/09/2023, 03/04/2023, 02/16/2023 (BI-RADS 0), 01/29/2022, 01/11/2021, 01/10/2020. TECHNIQUE: Digital breast tomosynthesis is performed in both the craniocaudal and mediolateral oblique views along with computer-aided detection (CAD). Synthesized 2D images are generated from the tomosynthesis. In addition, 2-D spot magnification left CC x2, and left ML x3 views were obtained. FINDINGS: There are scattered areas of fibroglandular density (ACR BI-RADS breast composition Category b). Magnification views demonstrate no significant interval change in the calcifications within the far posterior aspect of the upper outer left breast along the posterior scar margin. These again have a somewhat coarse appearance and are located within the lobules on the tomographic images, suggesting fat necrosis. They are unchanged in both morphology and number. There are again best seen in the left exaggerated CC magnification view. 1 year follow-up suggested. Otherwise, stable lumpectomy scarring in the 3:00 axis left breast, posterior one third. There are stable benign dystrophic scattered calcifications in both breasts. There is no suspicious mass, new suspicious calcifications, or new area of architectural distortion in either breast. The overall parenchymal pattern is stable from previous. No skin or axillary abnormalities are present. MM/MM tomosynthesis diagnostic BI IMPRESSION: There are no findings suspicious for malignancy in either breast. Stable benign findings bilaterally. Grouped calcifications in the far posterior aspect of the upper outer left breast along the posterior margin are completely unchanged. These remain probably benign, one year follow-up magnification views recommended when the patient is due for one year bilateral screening. ASSESSMENT: BI-RADS BI-RADS 3 - Probably benign finding(s) - 12 month follow-up suggested RECOMMENDATION: 12 month diagnostic follow up Results were provided to the patient at time of visit by the technologist. This patient's information was entered into a reminder system with a target due date for their next mammogram. Electronically signed by: Porfirio Dozier MD 03/15/2024 12:30 PM EDT
== END 2024-03-15 11:04 | disposition home or self-care (01) ==
LOC: HO.MAMMO 11:03
PROVIDERS: PCP Internal Medicine; Visit Provider Surgery
DX: Z85.3 Personal history of malignant neoplasm of breast (principal)
CPT/HCPCS: 77062; 77066

== ENCOUNTER 2024-03-31 14:18 | Outpatient (AMB) | payer OTHER, SELFPAY ==
--- NOTE | 2024-03-31 14:20 | MHC.OFFVIS ---
Vital Signs 03/31/24 14:29 Height 5 ft 3 in Weight 169 lb BMI 29.9 BP 140/84 H Blood Pressure Location Lt brachial Position Sitting Pulse 87 Intake Visit Reasons: 6 mth breast exam Intake Note: Patient is seen in office for 6 month follow up visit, breast exam. 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 Mammogram dated 07/14/2018 and 07/30/2018 revealed microcalcifications in the 3:30 o'clock location left breast felt to be suspicious for malignancy. 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 She underwent a left breast lumpectomy with needle localization on 08/11/2018. Pathology confirmed a 1 x 1 by 0.9 cm ductal carcinoma in situ, nuclear grade 3, with focal necrosis, ER/AK positive, with the closest margin being the medial margin of 2.5 mm. She underwent radiation therapy followed by tamoxifen which she is tolerating well. She denies any new symptoms. Genetic testing revealed no known clinically significant genetic mutations and 1 mutation of unknown significance in the POLD 1 gene. Mammogram on 02/16/2023 with follow-up images of the left breast on 03/04/2023 revealed calcifications in the deep 1/3 of the upper-outer quadrant left breast seen at the scar margin consistent with fat necrosis. These regarded as low suspicion for malignancy and follow-up in 6 months with a diagnostic mammogram is recommended (BI-RADS 3). Follow-up images of the left breast on 09/09/2023 revealed no significant changes the calcification. Six-month follow-up bilateral mammograms are recommended (BI-RADS 3). Subsequent follow-up mammogram performed on 03/15/2024 of the bilateral breast revealed the grouped calcifications in the posterior aspect upper outer quadrant left breast with no changes from the prior mammogram. Diagnostic follow-up mammogram was recommended in 12 months (BI-RADS 3). [facility] Medical History Hx of radiation therapy HX: breast cancer Sleep apnea Surgical History History of dilatation and curettage Status post left breast lumpectomy (08/11/18) H/O colonoscopy (2017) Family History Mother Breast cancer Sister Breast cancer Maternal Aunt Breast cancer Maternal Grandmother Breast cancer Social History Household Members Other:: Fiance Housing: House Alcohol intake: current Alcohol intake frequency: holidays/special occasions only Patient Tobacco Use Status: Never used Tobacco Current occupational status: employed Current occupation: Accounting Sexual orientation: Straight/Heterosexual Gender identity: Female Review of Systems Const All systems reviewed & are unremarkable except as noted in HPI and below Physical Exam Const General: healthy appearing and well developed Nutritional Appearance: well nourished Orientation/consciousness: patient oriented x3 Limitations: no limitations HEENT Head: Yes normocephalic and Yes atraumatic Neck Neck: Yes normal visual inspection, Yes no lymphadenopathy and Yes no JVD Lymphatic: no lymphadenopathy noted Chest Other: Left breast: No skin change, no nipple retraction, no nipple discharge, no new palpable mass, area of firmness in the lower outer quadrant as noted below, postoperative change, no enlarged lymph nodes. Right breast: No skin change, no nipple retraction, no nipple discharge, no palpable mass, no enlarged lymph nodes Resp Effort & Inspection: normal respiratory effort and no audible wheezes Skin General skin exam: no rashes or lesions noted Neuro Other: Mobility Assessment: 1. 3 meter assessment time (seconds) 5 2. Gait observations: Normal balance and gait General: patient oriented x3 Extrem General: Yes no clubbing, cyanosis or edema Assessment & Plan Assessment & Plan (1) Ductal carcinoma in situ of left breast: Code(s): D05.12 - Intraductal carcinoma in situ of left breast Category: Medical (2) Calcification of left breast: Code(s): R92.1 - Mammographic calcification found on diagnostic imaging of breast Category: Medical Plan 58-year-old female returning for a follow-up examination following left breast lumpectomy for ductal carcinoma in-situ. She completed radiation therapy and is currently on tamoxifen. Follow-up bilateral mammogram performed on 03/15/2024 revealed grouped calcifications in the far posterior aspect upper outer quadrant left breast with no change from the prior mammogram. Follow-up mammogram in 1 year is recommended (BI-RADS 3). Examination today revealed no suspicious findings and only post treatment scar tissue in the lower outer quadrant. No enlarged lymph nodes are identified. She will follow-up in 1 year following her next mammogram scheduled for 03/16/2025. She is welcome to call sooner for any new concerns. Coding Level of Care Code Est Pt Level 3 (23900) Diagnoses Ductal carcinoma in situ of left breast D05.12 Calcification of left breast R92.1
[2024-03-31 14:29] VITALS: BP 140/84; PULSE 87; BMI 29.9
== END 2024-03-31 14:37 | disposition home or self-care (01) ==
PROVIDERS: PCP Internal Medicine; Visit Provider Surgery
DX: D05.12 Intraductal carcinoma in situ of left breast (principal); R92.1 Mammographic calcification found on diagnostic imaging of breast
CPT/HCPCS: 99213

== ENCOUNTER → 2024-03-31 14:18 | Outpatient (BNVA) | payer OTHER, SELFPAY | PROVIDERS: PCP Internal Medicine; Visit Provider Surgery | DX: D05.12 Intraductal carcinoma in situ of left breast (principal); R92.1 Mammographic calcification found on diagnostic imaging of breast; C50.912 Malignant neoplasm of unspecified site of left female breast ==

== ENCOUNTER 2024-04-20 11:11 | Outpatient (REF) | payer OTHER, SELFPAY ==
[2024-04-22 11:13] LABS: HPV mRNA E6/E7 Not Detected (Not Detected)
== END 2024-04-20 11:12 | disposition home or self-care (01) ==
LOC: HO.LNP 11:11
PROVIDERS: PCP Internal Medicine; Visit Provider Obstetrics & Gynecology
DX: Z01.419 Encounter for gynecological examination (general) (routine) without abnormal findings (principal); Z11.51 Encounter for screening for human papillomavirus (HPV)
CPT/HCPCS: 87624; 88175

== ENCOUNTER 2024-04-20 11:11 | Outpatient (AMB) | payer OTHER, SELFPAY ==
--- NOTE | 2024-04-20 11:20 | MHC.OFFVIS ---
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 No complaints. Last Pap/HPV was negative in 11/21 Last Mammogram was BI-RADS 3 in 03/29, the recommendation was to repeat diagnostic mammogram in 1 year Last Colonoscopy was in 08/23, the recommendation was to repeat in 10 years PFS Medical History Hx of radiation therapy HX: breast cancer Sleep apnea Surgical History History of dilatation and curettage Status post left breast lumpectomy (08/11/18) H/O colonoscopy (2016) Family History Mother Breast cancer Sister Breast cancer Maternal Aunt Breast cancer Maternal Grandmother Breast cancer Social History Household Members Other:: Fiance Housing: House Alcohol intake: current Alcohol intake frequency: holidays/special occasions only Patient Tobacco Use Status: Never used Tobacco Current occupational status: employed Current occupation: Accounting Sexual orientation: Straight/Heterosexual Gender identity: Female Female Reproductive History Menstrual Date of Mammogram: 03/15/24 Review of Systems Const All systems reviewed & are unremarkable except as noted in HPI and below Card Reports as per HPI Resp Reports as per HPI GI Reports as per HPI and Reports no additional complaints Reports as per HPI Physical Exam Vital Signs: Last Vital Signs BP 122/80 04/20/24 11:21 BMI result Body Mass Index 29.7 Const General: cooperative, healthy appearing and comfortable Chest Chest palpation & inspection: normal inspection of the chest and normal palpation of entire chest wall Breast/axilla inspection: normal inspection of the breasts and normal inspection of the axillae Breast/axilla palpation: normal palpation of the breasts, normal palpation of the axillae and no axillary lymphadenopathy Resp Effort & Inspection: normal respiratory effort Auscultation: clear to auscultation bilaterally Percussion: percussion normal Cardio Palpation: normal PMI Rate: regular rate Rhythm: regular rhythm Heart sounds: no murmurs and no rubs Peripheral pulses: Peripheral pulses 2+ throughout GI Inspection: Yes normal to inspection Palpation (GI): Soft to palpation, nontender, no guarding, not rigid and No hepatosplenomegaly present Percussion: Yes normal to percussion Auscultation: normal bowel sounds Rectal Exam - Female: deferred General: Yes bladder normal to palpation External Female Exam: No lesion Speculum Exam - Vagina: normal appearance of the vagina, normal palpation, normal vaginal discharge and not erythematous Speculum Exam - Cervix: normal appearance of the cervix and normal palpation Bimanual exam- vagina & uterus: normal bimanual exam, normal palpation, uterine size normal, bladder normal to palpation, consistency normal and normal palpation Bimanual Exam- Adnexa, other: normal adnexae, no masses and no tenderness Assessment & Plan Assessment & Plan (1) Well woman exam: Code(s): Z01.419 - Encounter for gynecological examination (general) (routine) without abnormal findings Category: Medical Plan: Co testing done. Counseled the patient about the recommended dietary allowance of 1200 mg of Calcium & 600 IU of vitamin D. Instructions given the patient to schedule next diagnosis Mammogram in 03/30. The patient was instructed to perform monthly self-breast exams and schedule annual exam in a year. All questions answered and the patient verbalized understanding. Coding Level of Care Code Est Pt Prev Care 40-64y(13979) Diagnoses Well woman exam Z01.419
[2024-04-20 11:21] VITALS: BP 122/80; BMI 29.7
== END 2024-04-20 11:55 | disposition home or self-care (01) ==
LOC: HO.HWS 11:11
PROVIDERS: PCP Internal Medicine; Visit Provider Obstetrics & Gynecology
DX: Z01.419 Encounter for gynecological examination (general) (routine) without abnormal findings (principal)
CPT/HCPCS: 99396

== ENCOUNTER 2025-01-20 14:04 | Outpatient (AMB) | payer OTHER, SELFPAY ==
[2025-01-20 13:55] VITALS: BP 130/80; PULSE 98; TEMP 36.4; O2SAT 98; BMI 30.6
--- NOTE | 2025-01-20 13:55 | MHC.PC.OV ---
Vital Signs 01/20/25 13:55 Height 5 ft 3 in Weight 173 lb BMI 30.6 BP 130/80 Blood Pressure Location Lt brachial Position Sitting Pulse 98 Pulse Source Pulse Oximeter Temp 97.5 F Temp Source Axillary Pulse Oximetry (%) 98 Oxygen Delivery Method Room Air Intake Visit Reasons: Annual Senior Hris Analyst Required: No Accompanied by: Self / Same As Patient Allergies codeine (CODEINE) Allergy (Intermediate, Verified 01/20/25 13:55) HALLUCINATIONS Codeine Phosphate Allergy (Unknown, Uncoded 03/31/24 14:21) rash Medication List - Last Reconciled 01/20/25 by Mariposa Martinez MD acyclovir 400 mg PO TID PRN 10 days albuterol sulfate 90 mcg/actuation (Ventolin HFA) 2 puffs inhalation Q6H PRN amoxicillin-pot clavulanate 875-125 mg 1 tab PO BID PRN cholecalciferol (vitamin D3) (Vitamin D3) 25 mcg PO DAILY fluticasone propion-salmeterol 500-50 mcg/dose (Wixela Inhub) 1 inh inhalation BID lorazepam 0.5 mg PO BEDTIME PRN multivitamin 1 tab PO DAILY Tobacco use date assessed: 01/20/25 Dental Screening Dental Screen Date: 01/20/25 Did you have a dental visit in the last 12 months?: Yes Did you have a dental problem in the last 6 months where you did not have access to dental care?: No HPI HPI Comments History of Present Illness Details The patient is a 59 year old female with a past medical history of anxiety, herpes, presenting for annual exam Heme/Onc: 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 Mammogram dated 07/14/2018 and 07/30/2018 revealed microcalcifications in the 3:30 o'clock location left breast felt to be suspicious for malignancy. 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 She underwent a left breast lumpectomy with needle localization on 08/11/2018. Pathology confirmed a 1 x 1 by 0.9 cm ductal carcinoma in situ, nuclear grade 3, with focal necrosis, ER/UT positive, with the closest margin being the medial margin of 2.5 mm. She underwent radiation therapy followed by tamoxifen. She attributes fatty liver to tamoxifen. HSV: Takes acyclovir prn for outbreak Asthma well controlled on wixela and albuterol. Patient reports intermittent flares of abdominal pain. History of diverticuli on colonoscopy. She thinks she is having flares of diverticulitis Last [place] [facility] [place] Mammogram 03/29 Last Colonoscopy was in 12/2023, the recommendation was to repeat in 10 years ROS see HPI PHYSICAL EXAM: GENERAL: Alert and oriented x 3. NAD EYES: EOMI. Anicteric. HENT: Moist mucous membranes. No scleral icterus. No cervical lymphadenopathy. LUNGS: Clear to auscultation bilaterally. CARDIOVASCULAR: Regular rate and rhythm. No murmur. No JVD. ABDOMEN: Soft, non-tender +bs EXTREMITIES: No edema. Non-tender. SKIN: No rashes or lesions. Warm. NEUROLOGIC: No focal neurological deficits. CN II-XII grossly intact PSYCHIATRIC: Cooperative. Appropriate mood and affect [facility] Medical History Hx of radiation therapy HX: breast cancer Sleep apnea Surgical History History of dilatation and curettage Status post left breast lumpectomy (08/11/18) H/O colonoscopy (12/25/23) Family History Mother Breast cancer Sister Breast cancer Maternal Aunt Breast cancer Maternal Grandmother Breast cancer Father No problems noted. Social History Household Members Other:: Fiance Housing: House Alcohol intake: current Alcohol intake frequency: holidays/special occasions only Patient Tobacco Use Status: Never used Tobacco e-Cigarette/Vaping Use: Never Used Current occupational status: employed Current occupation: Accounting Sexual orientation: Straight/Heterosexual Gender identity: Female Cognitive needs: No Hearing needs: No Vision needs: No Questionnaire PHQ-9 Over the last 2 weeks, how often have you been bothered by any of the following problems? 1. Little interest or pleasure in doing things: not at all 2. Feeling down, depressed, or hopeless: not at all 3. Trouble falling or staying asleep, or sleeping too much: not at all 4. Feeling tired or having little energy: not at all 5. Poor appetite or overeating: not at all 6. Feeling bad about yourself - or that you are a failure or have let yourself or your family down: not at all 7. Trouble concentrating on things, such as reading the newspaper or watching television: not at all 8. Moving or speaking so slowly that other people could have noticed. Or the opposite - being so fidgety or restless that you have been moving around a lot more than usual: not at all 9. Thoughts that you would be better off or of hurting yourself in some way: not at all Total score: 0 Depression Screening Interpretation: Negative Depression Screening Done: Yes 88057 - PHQ-9 Billing: Yes Source: Developed by Drs. Ronal Silva, Raysa Hernadez, Teja Hinojosa and colleagues, with an educational anselmo from [employer]. Thrive Questionnaire Date Thrive assessed: 01/20/25 I am a: Patient Within the past 12 months, did the food you bought not last and you didn't have the money to get more?: Never true Within the past 12 months, did you worry whether your food would run out before you got money to buy more?: Never true Do you have trouble paying for medicines?: No Do you have trouble getting transportation to medical appointments?: No Do you have trouble paying your heating and electricity bill?: No Do you have trouble taking care of your child, family member or friend?: No Do you have trouble with day-to-day activities such as bathing, preparing meals, shopping, managing finances, etc.?: No Are you currently unemployed and looking for a job?: No Are you interested in more education?: No THRIVE Score: 0 AUDIT C Alcohol Use Questionnaire (AUDIT-C) 1. How often do you have a drink containing alcohol?: Monthly or less 2. How many drinks containing alcohol do you have on a typical day when you are drinking?: 1 or 2 3. How often do you have six or more drinks on one occasion?: Less than monthly Total Score: 2 LEIA-7 AMB Questionnaire LEIA-7 Date LEIA - 7 assessed: 01/20/25 Feeling nervous, anxious, or on edge: 0 = Not at all Not being able to stop or control worryin = Not at all Worrying too much about different things: 0 = Not at all Trouble relaxin = Not at all Being so restless that it is hard to sit still: 0 = Not at all Becoming easily annoyed or irritable: 0 = Not at all Feeling afraid as if something awful might happen: 0 = Not at all Total LEIA-7 score (0-4 normal; 5-9 mild; 10-14 moderate; 15-21 severe): 0 Source: Developed by Drs. Ronal Silva, Raysa Hernadez, Teja Hinojosa and colleagues, with an educational anselmo from [employer]. Physical exam (Primary Care) Vital Signs: Last Vital Signs Temp 97.5 F 01/20/25 13:55 Pulse 98 01/20/25 13:55 BP 130/80 01/20/25 13:55 Pulse Ox 98 01/20/25 13:55 Oxygen Delivery Method Room Air 01/20/25 13:55 BMI result Body Mass Index 30.6 Tobacco/Smoking Status: Tobacco use Status Tobacco use date assessed 01/20/25 01/20/25 13:56 Patient Tobacco Use Status Never used Tobacco 01/20/25 13:56 e-Cigarette/Vaping Use Never Used 01/20/25 13:56 PHQ-9: PHQ-9 Score PHQ-9: Total score 0 01/22/25 19:04 Depression Screening Interpretation: Negative Thrive Assessment: Date of Thrive Assessment Date Thrive assessed 01/20/25 01/20/25 13:56 Coding Level of Care Code New Pt Prev Care 40-64y(13070) Diagnoses Physical exam Z00.00 Ductal carcinoma in situ of left breast D05.12 Additional Codes PHQ-9 - 91600 - PHQ-9 Billing: Yes ([id number]) Assessment & Plan Assessment & Plan (1) Physical exam: Code(s): Z00.00 - Encounter for general adult medical examination without abnormal findings (2) Ductal carcinoma in situ of left breast: Code(s): D05.12 - Intraductal carcinoma in situ of left breast Category: Medical Plan 59 year old for physical exam Past medical, surgical social reviewed asthma-stable anxiety stable. continue prn lorazepam Mammo ordered Labs ordered Orders: Orders Complete Blood Count Auto Diff 01/20/25 E78.5 - Hyperlipidemia, unspecified, R73.09 - Other abnormal glucose, R79.89 - Other specified abnormal findings of blood chemistry, Z13.0 - Encounter for screening for diseases of the blood and blood-forming organs and certain disorders involving the immune mechanism, Z13.228 - Encounter for screening for other metabolic disorders MM tomosynthesis screening BI 01/20/25 Z12.31 - Encounter for screening mammogram for malignant neoplasm of breast US abdomen conrad w elastography 01/20/25 K76.0 - Fatty (change of) liver, not elsewhere classified Comprehensive Met. Panel 01/20/25 E78.5 - Hyperlipidemia, unspecified, R73.09 - Other abnormal glucose, R79.89 - Other specified abnormal findings of blood chemistry, Z13.0 - Encounter for screening for diseases of the blood and blood-forming organs and certain disorders involving the immune mechanism, Z13.228 - Encounter for screening for other metabolic disorders Lipid Panel 01/20/25 E78.5 - Hyperlipidemia, unspecified, R73.09 - Other abnormal glucose, R79.89 - Other specified abnormal findings of blood chemistry, Z13.0 - Encounter for screening for diseases of the blood and blood-forming organs and certain disorders involving the immune mechanism, Z13.228 - Encounter for screening for other metabolic disorders Vitamin D 25-OH (D2 and D3) 01/20/25 E78.5 - Hyperlipidemia, unspecified, R73.09 - Other abnormal glucose, R79.89 - Other specified abnormal findings of blood chemistry, Z13.0 - Encounter for screening for diseases of the blood and blood-forming organs and certain disorders involving the immune mechanism, Z13.228 - Encounter for screening for other metabolic disorders Hemoglobin A1c 01/20/25 E78.5 - Hyperlipidemia, unspecified, R73.09 - Other abnormal glucose, R79.89 - Other specified abnormal findings of blood chemistry, Z13.0 - Encounter for screening for diseases of the blood and blood-forming organs and certain disorders involving the immune mechanism, Z13.228 - Encounter for screening for other metabolic disorders Medications: New fluticasone propion-salmeterol 500-50 mcg/dose (Wixela Inhub) 1 inh inhalation BID 60 ea 3RF albuterol sulfate 90 mcg/actuation (Ventolin HFA) 2 puffs inhalation Q6H PRN 8.5 grams 3RF shortness of breath or wheezing amoxicillin-pot clavulanate 875-125 mg 1 tab PO BID PRN 10 tabs 3RF abdominal pain acyclovir 400 mg PO TID PRN 30 tabs 5RF herpes 10 days lorazepam 0.5 mg PO BEDTIME PRN 30 tabs 1RF anxiety
--- OUTSIDE RECORDS SUMMARY | 2025-01-20 14:06 | XMS_ITS | Clinical Summary ---
Author Organization [facility] [employer] Address [address] [facility] [place] [address] Care Team Providers Care Recreation Technician Name Role Phone Unavailable Primary Care Provider Unavailabl e Allergies Active Allergy Reactions Criticality Noted Date Comments Codeine 10/16/2020 Medications tamoxifen (NOLVADEX) 20 MG tablet TAKE 1 TABLET BY MOUTH EVERY DAY 10/06/2020 Active Wixela Inhub 250-50 mcg/dose DISKUS INHALE 1 PUFF TWICE A DAY NEEDED 10/02/2020 Active Social History Tobacco Use Types Packs/Day Years Used Date Smoking Tobacco: Never Assessed Comments Unknown Sex and Gender Information Value Date Recorded Sex Assigned at Not on file Legal Sex Female 6:24 PM EDT Gender Identity Not on file Sexual Orientation Not on file Last Filed Vital Signs Vital Sign Reading Time Taken Comments Blood Pressure - - Pulse 105 10/16/2020 8:53 AM EDT Temperature 35.8 C (96.5 F) 10/16/2020 8:53 AM EDT Respiratory Rate - - Oxygen Saturation 96% 10/16/2020 8:53 AM EDT Inhaled Oxygen Concentration - - Weight - - Height - - Body Mass Index - - Plan of Treatment Health Maintenance Due Date Last Done Comments Colorectal Cancer: COLONOSCO PY Screening every 10 yrs (or Modifier) 1965 Depression: Screening Annual ly using PHQ-2/9 in Adults 18 yrs or above (or HM Modifier)([facility]) 1983 Hepatitis C Virus Infection in Adolescents and Adults: Screening (or Modifier) ([facility]) 1983 SDOH Screening Reminder: Flores lewis for all adults ([facility]) 1983 Tobacco Smoking Cessation: i n Adults excluding Women: Behavioral and Pharmacotherapy Interventions ([facility]) 1983 DTaP/Tdap/Td Vaccines ([facility]) (1 - Tdap) 1984 Cervical Cancer Screenin 1-65 yrs of age (or Modifier) 1986 Cervical Cancer Screening: P ap every 3 yrs pts age 21-65 1986 Cervical Cancer: Pap Screeni ng with Modifier timing ([facility] ) 1986 Cervical Cancer: hrHPV alone or with cotesting Pap for Pts 30-65yrs screening every 5yrs ([facility]) 1986 Colorectal Cancer Screening 45 -75 Yrs (or HM Modifier ) 2010 Colorectal Cancer: FLEXIBLE SIGMOIDOSCOPY Screening every 5 yrs 2010 Colorectal Cancer: Fecal Imm unochemical Test (FIT) [facility]ually [facility] 2010 Colorectal Cancer: High-sens itivity gFOBT Screening Annually [facility] 2010 Colorectal Cancer: Stool Col oguard Screening every 3 yrs 2010 Colorectal Cancer:CT Colonography Screening every 5 yr s 2010 Breast Cancer: Screening Flores ually age 50-74 yrs (or HM Modifier)([facility]) 2015 Pneumococcal Vaccination Scr eening: Patients 50+ yrs of age ([facility]) (1 of 1 - PCV) 2015 Zoster/Shingles Vaccine Seri es Screening: Adults aged 18+ yrs (or HM Modifiers)([facility]) (1 of 2) 2015 COVID-19 Vaccine Screening: Initial Series and Booster Status ([facility]) (2023- season) 2024 Flu Vaccination: Yearly for ages 18mos through 64 years (or Modifier)([facility]) 02/03/2025 Medical Devices Not on file Insurance [address] [place] [id number]
--- OUTSIDE RECORDS SUMMARY | 2025-01-20 14:06 | XMS_ITS | Patient Health Record ---
Author Organization [facility] Address [address] [place] [address] Care Team Providers Care Supervisor Road Administrator Name Role Phone Dileep (RETIRED) Justus GONZALES Primary Care Provide r Ronal Shah Unavailable [phone] Allergies Allergen (clinical drug ingredient) Drug/Non Drug Allergy documented on EMR Reaction Allergy Type Onset Date Status codeine Codeine Sulfate Unknown Drug Allergy A ctive Results Component Value Reference Range Notes Complete Blood Count Auto Di ff Reviewed date:02/23/2024 12:25:02 PM Interpretation: Performing Lab:[facility], [address] [place] [phone] Notes/Report: White Blood Count 7.6 4.8-10.8 X10*3/uL Red Blood Count 4.40 4.20-5.50 X10*6/uL Hemoglobin 12.7 12.0-16.0 g/dl Hematocrit 38.9 37.0-47.0 % Mean Corpuscular Volume 88.4 80.0-98.0 fL Mean Corpuscular Hemoglobin 28.9 27.0-33.0 pg Mean Corpuscular HGB Conc 32.6 31.0-35.0 g/dl Red Cell Distribution Width 13.7 11.0-16.0 % Platelet Count 335 160-400 X10*3/uL Mean Platelet Volume 8.6 9.4-12.3 fL Neutrophils Percent Auto 55.1 45-73 % Imm Gran Pct Auto 0.5 0.0-0.4 % Lymphocytes Percent Auto 33.2 20-40 % Monocytes Percent Auto 6.7 2-11 % Eosinophils Percent Auto 4.1 0-4 % Basophils Percent Auto 0.4 0-2 % NRBC Pct Auto 0.0 0.0-0.2 /100WBC Neutrophils Absolute Auto 4.2 2.0-8.3 x10*3/u L Imm Gran Abs Auto 0.04 0.00-0.03 X10*3/uL Lymphocytes Absolute Auto 2.5 1.2-4.9 X10*3/u L Monocytes Absolute Auto 0.5 0.1-1.2 X10*3/uL Eosinophils Absolute Auto 0.3 0.0-0.4 X10*3/u L Basophils Absolute Auto 0.0 0.0-0.2 X10*3/uL NRBC Abs Auto 0.000 0.0-0.012 X10*3/uL Prothrombin Time INR Reviewed date:02/23/2024 12:24:51 PM Interpretation: Performing Lab:[address] [phone] Notes/Report: Prothrombin Time 10.9 11.1-13.3 SEC INTERNATIONAL NORM RATIO 0.9 0.9-1.1 INTERNATIONAL NORMALIZED RATIO (INR) REFERENCE RANGES Reference Range For patients not on anticoagulant therapy: 0.9 - 1.1 INR ranges for oral anticoagulant therapy: For prevention and treatment of venous thrombosis and pulmonary embolism: 2.0 - 3.0 For acute myocardial infarction with aspirin therapy: 2.0 - 3.0 For acute myocardial infarction without aspirin therapy: 3.0 - 4.0 For patients with mechanical prosthetic heart valves: 2.5 - 3.5 Liver Panel (Not yet reviewe d by provider) Interpretation: Performing Lab:[address] [phone] Notes/Report: Bilirubin Total 0.4 0.0-1.0 mg/dL Bilirubin Direct 0.1 0.0-0.5 mg/dL Aspartate Amino Transferase 38 5-31 U/L Alanine Aminotransferase 43 0-31 U/L Total Protein 7.0 6.5-8.0 g/dL Albumin Level 4.3 3.5-5.0 g/dL Alkaline Phosphatase 62 39-117 U/L IRON PROFILE Reviewed date:02/23/2024 01:41:23 PM Interpretation: Performing Lab:[address] [place] [address] Notes/Report: Iron 72 30-160 mcg/dL Total Iron Binding Capacity 344 228-428 mcg/d L Percent Iron Saturation 21 15-50 % Unsaturated Iron Binding 272 Ferritin Reviewed date:02/23/2024 01:41:30 PM Interpretation: Performing Lab:[facility], [address] [place] [phone] Notes/Report: Ferritin 277 10-250 ng/mL Liver Fibrosis Pnl Reviewed date:03/02/2024 05:16:24 PM Interpretation: Performing Lab:[facility], [address] [place] [phone] Notes/Report: Liver Fibrosis Score 0.08 Liver Fibrosis Stage F0 Liver Fibrosis Interpretation SEE NOTE no fibrosis Fibro Test Score (f) Metavir Score f>=0 and f<=0.21 : F0 (no fibrosis) f>0.21 and f<=0.27 : F0-F1 (no fibrosis) f>0.27 and f<=0.31 : F1 (minimal fibrosis) f>0.31 and f<=0.48 : F1-F2 (minimal fibrosis) f>0.48 and f<=0.58 : F2 (moderate fibrosis) f>0.58 and f<=0.72 : F3 (advanced fibrosis) f>0.72 and f<=0.74 : F3-F4 (advanced fibrosis) f>0.74 and f<=1.00 : F4 (severe fibrosis) Nec Inflam Act Score 0.15 Nec Inflam Act Grade A0 Nec Inflam Act Interpretation SEE NOTE no activity ActiTest Score (a) Metavir Score a>=0 and a<=0.17 : A0 (no activity) a>0.17 and a<=0.29 : A0-A1 (no activity) a>0.29 and a<=0.36 : A1 (minimal activity) a>0.36 and a<=0.52 : A1-A2 (minimal activity) a>0.52 and a<=0.60 : A2 (significant activity) a>0.60 and a<=0.62 : A2-A3 (significant activity) a>0.62 and a<=1.00 : A3 (severe activity) YFC-Gheng-5-Macroglobulin 189 106-279 mg/dL FIB-Haptoglobin 161 43-212 mg/dL FIB-Apolipoprotein A1 200 101-198 mg/dL FIB-Total Bilirubin 0.4 0.2-1.2 mg/dL FIB-GGT 24 3-70 U/L FIB-ALT 37 6-29 U/L Reference ID [id number] Footnote SEE NOTE The reliability of results is dependent on compliance with the preanalytical and analytical conditions recommended by [employer]. The tests have to be deferred for: acute hemolysis, acute hepatitis, acute inflammation, extra hepatic cholestasis. The advice of a specialist should be sought for interpretation in chronic hemolysis and Gilbert's syndrome. The test interpretation is not validated in liver transplant patients. Isolated extreme values of one of the components should lead to caution in interpreting the results. In case of discordance between a biopsy result and a test, it is recommended to seek the advice of a specialist. The causes of these discordances could be due to a flaw of the test or to a flaw in the biopsy: i.e. a liver biopsy has a 33% variability rate for one fibrosis stage. FibroTest is interpretable for chronic hepatitis B and C, alcoholic and non alcoholic steatosis. ActiTest is interpretable for chronic hepatitis B and C. The performance characteristics have been determined by [facility]. It has not been cleared or approved by the U.S. Food and Drug Administration. Performance characteristics refer to the analytical performance of the test. [employer], the associated logo, [employer] and all associated [employer] manzo are the registered trademarks of [employer]. All third democrat manzo - (R) and (TM) - are the property of their respective owners. (C) 4233-5430 [employer]. All rights reserved. THIS TEST WAS PERFORMED AT: [facility] [place] [facility] [address] [place] [address] JESSE ROSARIO MD,PHD,DAVID JULIO Reflex Titer and Pattern Reviewed date:02/27/2024 10:49:42 PM Interpretation: Performing Lab:[facility], [address] [place] [phone] Notes/Report: Anti Nuclear Antibody Screen NEGATIVE NEGATIVE JULIO IFA is a first line screen for detecting the presence of up to approximately 150 autoantibodies in various autoimmune diseases. A negative JULIO IFA result suggests an JULIO-associated autoimmune disease is not present at this time, but is not definitive. If there is high clinical suspicion for Sjogren's syndrome, testing for anti-SS-A/Ro antibody should be considered. Anti-Neli-1 antibody should be considered for clinically suspected inflammatory myopathies. AC-0: Negative International Consensus on JULIO Patterns (https://doi.org/10.1515/c gxc-5677-9848) For additional information, please refer to http://education.FINDING ROVER/faq/SRD648 (This link is being provided for informational/ educational purposes only.) THIS TEST WAS PERFORMED AT: [facility] [address] [place] [phone] ASHLEY JOY MD Anti Nuclear Antibody Titer TNP Anti Nuclear Antibody Pattern TNP JULIO Titer 2 TNP JULIO Pattern 2 TNP JULIO Titer 3 TNP JULIO Pattern 3 TNP Mitochondrial Antibody Reviewed date:02/27/2024 11:54:23 AM Interpretation: Performing Lab:[address] [phone] Notes/Report: Mitochondrial Antibodies NEGATIVE NEGATIVE THIS TEST WAS PERFORMED AT: [facility] [address] [place] [phone] ASHLEY JOY MD Mitochondrial Ab Titer TNP Smooth Muscle Antibody Reviewed date:02/27/2024 11:54:32 AM Interpretation: Performing Lab:[address] [phone] Notes/Report: Smooth Muscle Antibody <20 <20 U Reference Range: <20 U: Negative >or=20 U: Positive Antibodies recognizing actin are the main component of smooth muscle antibodies associated with auto- immune liver disease. Actin antibodies are found in approximately 75% of patients with autoimmune hepatitis (AIH) type 1, approximately 65% of patients with autoimmune cholangitis, approximately 30% of patients with primary biliary cirrhosis and approximately 2% of healthy controls. High values are closely correlated with AIH type 1. THIS TEST WAS PERFORMED AT: [facility] [place] [address] [place] [address] AFRICA SINGH MD,PHD Hepatitis B,C Profile Reviewed date:02/23/2024 01:41:56 PM Interpretation: Performing Lab:[facility], [address] [place] [phone] Notes/Report: Hepatitis B Surface Antibody NONREACTIVE Nonreactive Nonreactive: < 8.00 mIU/mL Hepatitis B Core Antibody Nonreactive Nonreactive Hepatitis C Antibody Nonreactive Nonreactive Antibodies to HCV not detected; does not exclude early acute HCV infection. Hepatitis B Surface Antigen Negative Negative Reason For Referral No Information Medications Medication SIG (Take, Route, Frequency, Duration) Notes Start Date End Date Status Multi Vitamin - 1 tablet Orally Once a day for 30 day(s) Active Vitamin D (Cholecalciferol) 25 MCG (1000 UT) 1 capsule Orally Once a day for 30 day(s) Active Tamoxifen Citrate 20 MG TAKE 1 TABLET BY MOUTH EVERY DAY Oral for 90 Active Immunizations Vaccine Route Administration Date Status Comme nts Influenza Unknown 09/09/2023 Refused Social History Tobacco Use: Social History Observation Description Date Details (start date - stop date) Never Smoker NA - NA Tobacco Use/Smoking Question Answer Notes Patient is a nonsmoker Alcohol Screen Question Answer Notes Did you have a drink contain ing alcohol in the past year? Yes How often did you have a dri nk containing alcohol in the past year? 2 to 4 times a month (2 points) How many drinks did you have on a typical day when you were drinking in the past year? 1 or 2 drinks (0 point) How often did you have 6 or more drinks on one occasion in the past year? Never (0 point) Points 2 Interpretation Negative Section Notes: Nonsmoker; 1 drink per week Nonsmoker; 1 drink per week Problems Problem Type SNOMED Code ICD Code Onset Dates Problem Status W/U Status Risk Notes Problem Colon cancer screening (115585604) Colon cancer screening (Z12.11) Active confirmed Problem 156351866 Encounter for screening for malignant neoplasm of colon (Z12.11) Active confirmed Problem History of polyp of colon (situation) (403499942) Personal history of colonic polyps (Z86.010) Active confirmed Problem Pre-procedure evaluation check (232395808) Encounter for other preprocedural examination (Z01.818) Active confirmed Problem Diverticular disease of colon (477259162) Diverticulosis of large intestine without perforation or abscess without bleeding (K57.30) Active confirmed Problem 113315551 Preprocedural examination (Z01.818) Active confirmed Problem Fatty liver (K76.0) Active confirmed Problem Family History of Cancer of Colon (Situation) (136357364) Family history of colon cancer (Z80.0) Active confirmed Problem Elevated liver enzymes level (791534357) Elevated liver function tests (R94.5) Active confirmed Encounters Encounter Location Date Provider Diagnosis [facility] [address] [place] [address] 02/09/2024 Ronal Mendes Elevated liver function tests R94.5 and Fatty liver K76.0 Assessments Encounter Date Diagnosis (ICD Code) Assessment Notes Treatment Notes Treatment Clinical Notes Section Notes 02/09/2024 Fatty liver (ICD-10 - K76.0) 02/09/2024 Elevated liver function tests (ICD-10 - R94.5) Plan Of Treatment Pending Test Test Name Order Date LIVER PROFILE 02/09/2024 IRON + IBC (FE) 02/09/2024 CBC w DIFF 02/09/2024 FLUOR. ANTINUCLEAR AB SCREEN (MARIA D) 12/2023 Prothrombin Time INR 02/09/2024 Liver Panel 02/23/2024 Ferritin 02/09/2024 Liver Fibrosis Pnl 02/09/2024 Mitochondrial Antibody 02/09/2024 Smooth Muscle Antibody 02/09/2024 Hepatitis B,C Profile 02/09/2024 Future Test Test Name Order Date COLONOSCOPY 05/06/2017 COLONOSCOPY 09/09/2023 Insurance Providers Payer Name Payer Address Payer Phone Subscriber Number Group Number Insured Name Patient Relationship to Insured Coverage Start Date Coverage End Date [facility] [address] [facility] [place] [phone] [id number] KARINA COLEMAN Self - patient is the insured Medical (General) History Medical History History ICD Code Denies NE,DM,CVA,Lung disease,renal dise ase Colonoscopy 08/2017 with only hyperplasti c polyps Left-sided breast cancer 08/07 019-lumpectomy with neg. lymph nodes, had XRT, no chemo Surgical History Surgery Date(Month/Year) D&C Left lumpectomy/lymph nodes
== END 2025-01-20 14:44 | disposition home or self-care (01) ==
LOC: HO.HMCHD 14:04
PROVIDERS: PCP Internal Medicine; Visit Provider Internal Medicine
DX: Z00.00 Encounter for general adult medical examination without abnormal findings (principal); D05.12 Intraductal carcinoma in situ of left breast

== ENCOUNTER → 2025-01-20 14:04 | Outpatient (BNVA) | payer OTHER, SELFPAY | PROVIDERS: PCP Internal Medicine; Visit Provider Internal Medicine | DX: Z00.00 Encounter for general adult medical examination without abnormal findings (principal); D05.12 Intraductal carcinoma in situ of left breast; J45.909 Unspecified asthma, uncomplicated; F41.9 Anxiety disorder, unspecified; Z13.31 Encounter for screening for depression; Z13.39 Encounter for screening examination for other mental health and behavioral disorders | CPT/HCPCS: 96127 ==

== ENCOUNTER 2025-01-30 15:58 | Outpatient (AMB) | payer OTHER, SELFPAY ==
--- OUTSIDE RECORDS SUMMARY | 2025-01-30 16:05 | XMS_ITS | Clinical Summary ---
Author Organization [facility] [employer] Address [address] [facility] [place] [address] Care Team Providers Care Sales Product Specialist Name Role Phone Unavailable Primary Care Provider [...] Adults 18 yrs or above (or HM Modifier)([facility]) 1983 Hepatitis C Virus Infection in Adolescents and Adults: Screening (or Modifier) ([facility]) 1983 SDOH Screening Reminder: Flores lewis for all adults ([facility]) 1983 Tobacco Smoking Cessation: i n Adults excluding Women: Behavioral and Pharmacotherapy Interventions ([facility]) 1983 DTaP/Tdap/Td Vaccines ([facility]) (1 - Tdap) 1984 Cervical Cancer Screenin 1-65 yrs of age (or Modifier) 1986 Cervical Cancer Screening: P ap every 3 yrs pts age 21-65 1986 Cervical Cancer: Pap Screeni ng with Modifier timing ([facility] ) 1986 Cervical Cancer: hrHPV alone or with cotesting Pap for Pts 30-65yrs screening every 5yrs ([facility]) 1986 Colorectal Cancer Screening 45 -75 Yrs (or HM Modifier ) 2010 Colorectal Cancer: FLEXIBLE SIGMOIDOSCOPY Screening every 5 yrs 2010 Colorectal Cancer: Fecal Imm unochemical Test (FIT) Annually [facility] 2010 Colorectal Cancer: High-sens itivity gFOBT Screening Annually [facility] 2010 Colorectal Cancer: Stool Col oguard Screening every 3 yrs 2010 Colorectal Cancer:CT Colonography Screening every 5 yr s 2010 Breast Cancer: Screening Flores ually age 50-74 yrs (or HM Modifier)([facility]) 2015 Pneumococcal Vaccination Scr eening: Patients 50+ yrs of age ([facility]) (1 of 1 - PCV) 2015 Zoster/Shingles Vaccine Seri es Screening: Adults aged 18+ yrs (or HM Modifiers)([facility]) (1 of 2) 2015 COVID-19 Vaccine Screening: Initial Series and Booster Status ([facility]) (2023- season) 2024 Flu Vaccination: Yearly for ages 18mos through 64 years (or Modifier)([facility]) 02/03/2025 Medical Devices Not on file Insurance [id number] [place] [address]
--- OUTSIDE RECORDS SUMMARY | 2025-01-30 16:05 | XMS_ITS | Patient Health Record ---
Author Organization [facility] Address [address] [place] [address] Care Team Providers Care Solar Sales Estimator Name Role Phone Dileep (RETIRED) Justus GONZALES Primary Care Provide r Ronal Shah Unavailable [phone] Allergies Allergen (clinical drug ingredient) Drug/Non Drug Allergy documented on EMR Reaction Allergy Type Onset Date Status codeine Codeine Sulfate Unknown Drug Allergy A ctive Results Component Value Reference Range Notes Complete Blood Count Auto Di ff Reviewed date:02/23/2024 12:25:02 PM Interpretation: Performing Lab:[facility], [address] [place] [phone] Notes/Report: White Blood Count 7.6 4.8-10.8 X10*3/uL [...] INR Reviewed date:02/23/2024 12:24:51 PM Interpretation: Performing Lab:[address] [address] Notes/Report: Prothrombin Time 10.9 11.1-13.3 SEC INTERNATIONAL [...] yet reviewe d by provider) Interpretation: Performing Lab:[address] [address] Notes/Report: Bilirubin Total 0.4 0.0-1.0 mg/dL Bilirubin Direct 0.1 0.0-0.5 mg/dL Aspartate Amino Transferase 38 5-31 U/L Alanine Aminotransferase 43 0-31 U/L Total Protein 7.0 6.5-8.0 g/dL Albumin Level 4.3 3.5-5.0 g/dL Alkaline Phosphatase 62 39-117 U/L IRON PROFILE Reviewed date:02/23/2024 01:41:23 PM Interpretation: Performing Lab:[address] [place] [address] Notes/Report: Iron 72 30-160 mcg/dL Total Iron Binding Capacity 344 228-428 mcg/d L Percent Iron Saturation 21 15-50 % Unsaturated Iron Binding 272 Ferritin Reviewed date:02/23/2024 01:41:30 PM Interpretation: Performing Lab:[facility], [address] [place] [phone] Notes/Report: Ferritin 277 10-250 ng/mL Liver Fibrosis Pnl Reviewed date:03/02/2024 05:16:24 PM Interpretation: Performing Lab:[facility], [address] [place] [phone] Notes/Report: Liver Fibrosis Score 0.08 Liver Fibrosis [...] a>0.62 and a<=1.00 : A3 (severe activity) VRU-Modji-8-Macroglobulin 189 106-279 mg/dL FIB-Haptoglobin 161 43-212 mg/dL FIB-Apolipoprotein A1 200 101-198 mg/dL FIB-Total Bilirubin 0.4 0.2-1.2 mg/dL FIB-GGT 24 3-70 U/L FIB-ALT 37 6-29 U/L Reference ID [id number] Footnote SEE NOTE The reliability of results [...] The performance characteristics have been determined by [employer] [facility]. It has not been cleared or approved by the U.S. Food and Drug Administration. Performance characteristics refer to the analytical performance of the test. [employer], the associated logo, [employer] and all associated [employer] manzo are the registered trademarks of [employer]. All third green party manzo - (R) and (TM) - are the property of their respective owners. (C) 3671-6542 [employer]. All rights reserved. THIS TEST WAS PERFORMED AT: [facility] [address] [place] [address] JESSE ROSARIO MD,PHD,DAVID JULIO Reflex Titer and Pattern Reviewed date:02/27/2024 10:49:42 PM Interpretation: Performing Lab:[facility], [address] [place] [phone] Notes/Report: Anti Nuclear Antibody Screen NEGATIVE NEGATIVE [...] Negative International Consensus on JULIO Patterns (https://doi.org/10.1515/c non-6982-3536) For additional information, please refer to http://education.AquaBling/faq/DSJ934 (This link is being provided for informational/ educational purposes only.) THIS TEST WAS PERFORMED AT: [employer] [address] [place] [phone] ASHLEY JOY MD Anti Nuclear Antibody Titer TNP Anti Nuclear Antibody Pattern TNP JULIO Titer 2 TNP JULIO Pattern 2 TNP JULIO Titer 3 TNP JULIO Pattern 3 TNP Mitochondrial Antibody Reviewed date:02/27/2024 11:54:23 AM Interpretation: Performing Lab:[address] [phone] Notes/Report: Mitochondrial Antibodies NEGATIVE NEGATIVE THIS TEST WAS PERFORMED AT: [employer] [address] [place] [phone] ASHLEY JOY MD Mitochondrial Ab Titer TNP Smooth Muscle Antibody Reviewed date:02/27/2024 11:54:32 AM Interpretation: Performing Lab:[address] [phone] Notes/Report: Smooth Muscle Antibody <20 <20 U [...] type 1. THIS TEST WAS PERFORMED AT: [facility] [address] [place] [address] AFRICA SINGH MD,PHD Hepatitis B,C Profile Reviewed date:02/23/2024 01:41:56 PM Interpretation: Performing Lab:[facility], [address] [place] [phone] Notes/Report: Hepatitis B Surface Antibody NONREACTIVE Nonreactive [...] Status Risk Notes Problem Colon cancer screening (817496441) Colon cancer screening (Z12.11) Active confirmed Problem 479090628 Encounter for screening for malignant neoplasm of colon (Z12.11) Active confirmed Problem History of polyp of colon (situation) (160019208) Personal history of colonic polyps (Z86.010) Active confirmed Problem Pre-procedure evaluation check (680290771) Encounter for other preprocedural examination (Z01.818) Active confirmed Problem Diverticular disease of colon (526771921) Diverticulosis of large intestine without perforation or abscess without bleeding (K57.30) Active confirmed Problem 661274931 Preprocedural examination (Z01.818) Active confirmed Problem Fatty liver (927933871) Fatty liver (K76.0) Active confirmed Problem Family History of Cancer of Colon (Situation) (964001381) Family history of colon cancer (Z80.0) Active confirmed Problem Elevated liver enzymes level (018373329) Elevated liver function tests (R94.5) Active confirmed Encounters Encounter Location Date Provider Diagnosis [facility] [address] [place] [address] 02/09/2024 Ronal Mendes Elevated liver function tests [...] Insured Coverage Start Date Coverage End Date [facility] [address] [facility] [phone] [id number] KARINA COLEMAN Self - patient is the insured Medical (General) History Medical History History ICD Code Denies [place],DM,CVA,Lung disease,renal dise ase Colonoscopy 08/2017 with only hyperplasti c polyps Left-sided breast cancer 08/07 019-lumpectomy with neg. lymph nodes, had XRT, no chemo Surgical History Surgery Date(Month/Year) D&C Left lumpectomy/lymph nodes
[2025-01-30 16:07] VITALS: BP 138/64; PULSE 80; TEMP 36.7; O2SAT 96; BMI 30.9
--- NOTE | 2025-01-30 16:07 | AM.OFFWIN_ITS ---
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 - Reports recurrent itchy rashes on arms , neck, and underarms, feeling like they are on fire. - Episodes last up to a month, resolving and reappearing in different locations. - Uses calamine lotion and Tecnu with li mited relief. - she tells me she does not spend any ti me in the powers or gardening. She does have dogs but they do not spend time in plants or very far away from her. She denies there is a chance that she could have gotten poison helga. She also tells me she does not go out in the sun without covering her neck with a large hat and she has never been told she has an allergy to the sun. - she does use Benadryl at night with so me relief - she denies any new lotions, soaps or d etergents. - She has pictures of multiple rashes ov er the last 6 months, printed out and dated. - Family history of celiac disease; zeeshan ent seeks testing. - Unable to secure primary care appointm ent for testing due to scheduling delays. Physical Exam General: Cooperative, healthy appearing, comfortable, no acute distress and well developed Orientation: Patient oriented x3 Limitations: No limitations Head: Normal to inspection Ears: Hearing grossly normal bilaterally Nose: Normal External nose present Face and sinus: Normal facial exam Eyes: Appearance normal, both eyes and all related structures Neck: Normal visual inspection and Yes full ROM Respiratory: Normal respiratory effort and able to speak in complete sentences. Skin: linear, raised rash on an erythematous base on dorsal aspect of left arm. neck has a large flat area of erythema covering most of her neck, stopping at the shirtline, no raised areas, no vesicles, no warmth noted. Neuro: Patient oriented x3, gait normal Extremities: moving all extremities normally PFSH Medical History Hx of radiation therapy HX: breast cancer Sleep apnea Surgical History History of dilatation and curettage Status post left breast lumpectomy (08/11/18) H/O colonoscopy (12/25/23) Family History Mother Breast cancer Sister Breast cancer Maternal Aunt Breast cancer Maternal Grandmother Breast cancer Father No problems noted. Social History Household Members Other:: Fiance Housing: House Alcohol intake: current Alcohol intake frequency: holidays/special occasions only Patient Tobacco Use Status: Never used Tobacco e-Cigarette/Vaping Use: Never Used Patient : No Current occupational status: employed Current occupation: Accounting Sexual orientation: Straight/Heterosexual Gender identity: Female Cognitive needs: No Hearing needs: No Vision needs: No Review of Systems Const All systems reviewed & are unremarkable except as noted in HPI and below Physical Exam Vital Signs: Last Vital Signs Temp 98.1 F 01/30/25 16:07 Pulse 80 01/30/25 16:07 BP 138/64 01/30/25 16:07 Pulse Ox 96 01/30/25 16:07 Oxygen Delivery Method Room Air 01/30/25 16:07 BMI result Body Mass Index 30.9 Assessment & Plan Assessment & Plan (1) Contact dermatitis: Code(s): L25.9 - Unspecified contact dermatitis, unspecified cause Qualifiers: Contact dermatitis type: allergic Contact dermatitis trigger: non-food plants Qualified Code(s): L23.7 - Allergic contact dermatitis due to plants, except food Plan: Pictures patient brought with her very helpful of her rashes that she has had over the past 6 months. They appear to be mostly different morphologies. The ones under her axilla are raised confluent in erythematous. There is one picture of her arms that looks clearly like poison helga. The rest look like they could be a possible contact dermatitis but unclear what she came in contact with. Patient did bring up celiac disease as it does run in her family and she has never been tested. This could definitely be a possibility for some of the rashes. I have reached out to her PCP to try to arrange for an appointment so they can discuss testing. The rash she has currently on her left forearm looks like a poison helga. The rash on her neck as a different morphology completely and I wonder if she has an allergy to the son just based on the distribution as it stops at the neck line. She assures me she wears large hats and covers this area when she goes out side. She also tells me she does not spend any time in the powers or gardening so she does not think it is poison helga. We will treat with a steroid cream to be used sparingly twice a day, I did give her a refill because the quantity is small and these rashes are recurrent. Medications: New triamcinolone acetonide 0.5% do not exceed use greater than 14 days 1 appl topical BID 15 grams 1RF hydroxyzine HCl 25 mg PO BEDTIME 14 tabs 0RF Coding Level of Care Code Est Pt Level 3 (21432) Diagnoses Allergic contact dermatitis due to plants, except food L23.7 Contact dermatitis type: allergic Contact dermatitis trigger: non-food plants
== END 2025-01-30 16:42 | disposition home or self-care (01) ==
PROVIDERS: PCP Internal Medicine; Visit Provider Physician Assistant
DX: L23.7 Allergic contact dermatitis due to plants, except food (principal)

== ENCOUNTER 2025-02-17 08:07 | Outpatient (REF) | payer OTHER, SELFPAY ==
[2025-02-17 10:04] LABS: MANUAL DIFF FLAG NO
[2025-02-17 10:24] LABS: Hematocrit 41.1 % (37.0-47.0); Hemoglobin 13.6 g/dl (12.0-16.0); Imm Gran Abs Auto 0.03 X10*3/uL (0.00-0.03); Imm Gran Pct Auto 0.4 % (0.0-0.4); Lymphocytes Absolute Auto 2.4 X10*3/uL (1.2-4.9); Mean Corpuscular HGB Conc 33.1 g/dl (31.0-35.0); Mean Corpuscular Hemoglobin 28.3 pg (27.0-33.0); Mean Corpuscular Volume 85.6 fL (80.0-98.0); NRBC Abs Auto 0.000 X10*3/uL (0.0-0.012); NRBC Pct Auto 0.0 /100WBC (0.0-0.2); Platelet Count 330 X10*3/uL (160-400); Red Blood Count 4.80 X10*6/uL (4.20-5.50); White Blood Count 6.7 X10*3/uL (4.8-10.8)
[2025-02-17 11:00] LABS: Hemoglobin A1C 218.9507 umol/L; Total Hemoglobin (HGBA1C) 4738.6946 umol/L
[2025-02-17 11:01] LABS: Alanine Aminotransferase 44 U/L (0-31); Albumin Level 4.7 g/dL (3.5-5.0); Alkaline Phosphatase 77 U/L (39-117); Anion Gap 12 (12-20); Aspartate Amino Transferase 37 U/L (5-31); Blood Urea Nitrogen 13 mg/dL (9-16); Calcium 9.8 mg/dL (8.4-10.2); Carbon Dioxide 30 mmol/L (22-29); Chloride 104 mmol/L (96-108); Cholesterol 242 mg/dL (<200); Estimated Glomerular Filt Rate > 60; HDL Cholesterol 47 mg/dL (>40); Potassium 4.5 mmol/L (3.3-5.1); Sodium 141 mmol/L (135-145); Total Protein 7.0 g/dL (6.5-8.0); Triglycerides 229 mg/dL (<150)
[2025-02-22 16:28] LABS: Vitamin D 25-OH, D2 <4 ng/mL; Vitamin D 25-OH, D3 39 ng/mL; Vitamin D 25-OH, Total 39 ng/mL (30-100)
== END 2025-02-17 08:08 | disposition home or self-care (01) ==
LOC: HO.10HDL 08:07
PROVIDERS: Visit Provider Internal Medicine
DX: Z13.0 Encounter for screening for diseases of the blood and blood-forming organs and certain disorders involving the immune mechanism (principal); Z13.228 Encounter for screening for other metabolic disorders; E78.5 Hyperlipidemia, unspecified; R73.09 Other abnormal glucose; R79.89 Other specified abnormal findings of blood chemistry
CPT/HCPCS: 36415; 80053; 80061; 82306; 83036; 85025

== ENCOUNTER → 2025-03-16 13:00 | Outpatient (BNV) | payer OTHER, SELFPAY | PROVIDERS: PCP Internal Medicine; Visit Provider Internal Medicine | DX: R92.1 Mammographic calcification found on diagnostic imaging of breast (principal) | CPT/HCPCS: 77062; 77066 ==

== ENCOUNTER 2025-03-16 13:22 | Outpatient (REF) | payer OTHER, SELFPAY ==
--- NOTE | ~2025-03-16 | MM_ITS ---
EXAMINATION: MM DIAGNOSTIC DIGITAL BREAST TOMOSYNTHESIS, BILATERAL CLINICAL INFORMATION: Two-year follow-up for grouped calcifications in the upper outer left breast postoperative bed. Patient has history of left breast cancer in 2019 status post lumpectomy. COMPARISON: Mammography: Comparison is made with relevant prior exams. TECHNIQUE: Digital breast mammography with tomosynthesis is performed in both the craniocaudal and mediolateral oblique views along with computer-aided detection (CAD). FINDINGS: There are scattered areas of fibroglandular density (ACR BI-RADS breast composition Category b). Left: Grouped punctate and coarse heterogeneous calcifications in the upper outer breast far posterior depth are not suspiciously changed from prior however some are coarsening. No suspicious masses or other abnormal findings. Right: No suspicious calcifications masses or other abnormal findings. Results are provided to the patient at time of visit by the technologist. MM/MM tomosynthesis diagnostic BI IMPRESSION: Right: Negative. Left: Grouped coarse and punctate calcifications in the upper outer breast far posterior depth not significant change from prior however some are slightly coarsening. Recommend one-year follow-up to demonstrate a total of 3 years of stability given the changes in the calcifications in the postoperative bed. ASSESSMENT: BI-RADS BI-RADS 3 - Probably benign finding(s) - 12 month follow-up suggested RECOMMENDATION: 1 year F/U This patient's information was entered into a reminder system with a target due date for their next mammogram. Electronically signed by: Lucia Gordon DO 03/16/2025 02:33 PM EDT
== END 2025-03-16 13:23 | disposition home or self-care (01) ==
LOC: HO.MAMMO 13:22
PROVIDERS: PCP Internal Medicine; Visit Provider Internal Medicine
DX: R92.1 Mammographic calcification found on diagnostic imaging of breast (principal)
CPT/HCPCS: 77062; 77066

== ENCOUNTER 2025-04-11 08:15 | Outpatient (REF) | payer OTHER, SELFPAY ==
--- NOTE | ~2025-04-11 | US_ITS ---
EXAMINATION: US ABDOMEN LIMITED WITH LIVER ELASTOGRAPHY HISTORY: K76.0 - Fatty (change of) liver, not elsewhere classified TECHNIQUE: Real-time grayscale ultrasound imaging of the right upper quadrant was performed and images were reviewed. COMPARISON: Comparison is made with the prior examination dated 02/02/2023. FINDINGS: Liver: The right lobe of the liver measures 16.7 cm in size. The left lobe of the liver measures 14.3 cm in size. The liver demonstrates increased echotexture, consistent with steatosis. No focal mass or intrahepatic biliary ductal dilatation is identified. There is normal hepatopedal flow in the portal vein. Ultrasound elastography of the liver was performed with 10 separate measurements of the liver parenchyma with the patient in the supine position. Measurements were obtained approximately 2 cm below America's capsule and perpendicular to the capsule. The median shear wave velocity is 1.07 m/s. The interquartile range/median (IQR/median) is 0.16. Gallbladder and biliary tree: The gallbladder is unremarkable, without evidence of calculi, wall thickening, or pericholecystic fluid. There is no sonographic Zambrano sign. The common bile duct is normal in caliber measuring 4 mm. Right Kidney: The right kidney measures 11.0 cm in length. The right kidney is unremarkable, without evidence of masses, hydronephrosis, or calculi. Pancreas: The pancreatic head, neck, and body are unremarkable. The pancreatic tail is obscured by bowel gas. Abdominal aorta and inferior vena cava: The visualized portions of the abdominal aorta and inferior vena cava are normal in caliber. There is no free fluid in the right upper quadrant. US/US abdomen conrad w elastography IMPRESSION: Hepatomegaly and hepatic steatosis. The median shear wave velocity in the liver is 1.07 m/s, corresponding to a median liver stiffness of 3.4 kPa. The IQR/median value is 0.16. This is indicative of a quality data set. Findings are indicative of a normal elastography value with a low likelihood of severe fibrosis or cirrhosis. REFERENCE: Society of Radiologists in Ultrasound Liver Stiffness Thresholds (2019): LIVER STIFFNESS THRESHOLDS: *Shear wave velocity less than 1.3 m/s (Liver Stiffness equal or less than 5 kPa): High probability of being normal. *Shear wave velocity less than 1.7 m/s (Liver Stiffness less than 9 kPa): In the absence of other known clinical signs, rules out compensated advanced chronic liver disease. *Shear wave velocity between 1.7-2.1 m/s (Liver Stiffness 9-13 kPa): Suggestive of compensated advanced chronic liver disease but need further test for confirmation. *Shear wave velocity between 2.1-2.4 m/s (Liver Stiffness 13-17 kPa): Rules in compensated advanced chronic liver disease. *Shear wave velocity greater than 2.4 m/s (Liver Stiffness over 17 kPa): Suggestive of clinically significant portal hypertension. QUALITY OF DATA SET: *IQR/Median value equal or less than 0.30 implies a quality data set. *IQR/Median value over 0.30 implies a poor quality data set. SIGNIFICANT CHANGE FROM PRIOR EXAM: Significant change if liver stiffness measurement is 10% or greater from prior exam. OTHER CONSIDERATIONS: The stage of liver fibrosis may be overestimated in the setting of acute hepatitis, liver inflammation, elevated liver function tests, hepatic vascular congestion, obstructive cholestasis, non-fasting state, and infiltrative diseases such as amyloidosis and lymphoma. In some patients with NAFLD, the liver stiffness thresholds for compensated advanced chronic liver disease may be lower. In causes other than viral hepatitis and NAFLD, liver stiffness thresholds are not well established. Electronically signed by: Ronal Isabel MD 04/11/2025 09:04 AM EDT
== END 2025-04-11 08:16 | disposition home or self-care (01) ==
LOC: HO.US 08:15
PROVIDERS: PCP Internal Medicine; Visit Provider Internal Medicine
DX: K76.0 Fatty (change of) liver, not elsewhere classified (principal)
CPT/HCPCS: 76705; 76981

== ENCOUNTER → 2025-04-11 08:19 | Outpatient (BNV) | payer OTHER, SELFPAY | PROVIDERS: PCP Internal Medicine; Visit Provider Radiology Diagnostic Radiology | DX: K76.0 Fatty (change of) liver, not elsewhere classified (principal); R16.0 Hepatomegaly, not elsewhere classified | CPT/HCPCS: 76705 ==